=== PATIENT | female | born 1960 | race African-American/Black ===

== ENCOUNTER 2017-10-31 08:00 | Outpatient (CLI) | payer MEDICARE, OTHER | END 2017-10-31 08:01 | disposition home or self-care (01) | LOC: BICMAMMO 08:00 | PROVIDERS: ATTEND Internal Medicine Medical Oncology | DX: Z53.9 Procedure and treatment not carried out, unspecified reason (principal) ==

== ENCOUNTER 2017-11-03 12:45 | Outpatient (CLI) | payer MEDICARE, MEDICAID | END 2017-11-03 12:46 | disposition home or self-care (01) | LOC: BICMAMMO 12:45 | PROVIDERS: ATTEND Internal Medicine Medical Oncology | DX: Z12.31 Encounter for screening mammogram for malignant neoplasm of breast (principal); Z80.3 Family history of malignant neoplasm of breast | CPT/HCPCS: 77063 ==

== ENCOUNTER 2017-11-30 09:59 | Outpatient (CLI) | payer MEDICARE, MEDICAID | END 2017-11-30 10:00 | disposition home or self-care (01) | LOC: BICRAD 09:59 | PROVIDERS: ATTEND Family Medicine | DX: Z12.31 Encounter for screening mammogram for malignant neoplasm of breast (principal) | CPT/HCPCS: 71046 ==

== ENCOUNTER 2018-02-07 07:54 | Outpatient (CLI) | payer MEDICARE, MEDICAID ==
[2018-02-07 10:38] LABS: Actual Bicarbonate (HCO3a) 19.8 mEq/L (22-26); CO2 Tension 28.2 mmHg (35.0-45.0); O2 Tension (PaO2) 50.7 mmHg (80.0-100.0); pH, Arterial 7.47 (7.35-7.45)
[2018-02-07 10:39] LABS: Base Excess (BEa) 2.4 mEq/L (0 (+/-) 2.5); Hematocrit-ABG 47.6 % (36.0-47.0); Hemoglobin (Hb) 13.9 g/dL (12.0-16.0)
[2018-02-07 10:41] LABS: Analyzer IN Cardio OR; Puncture Site RT BR
== END 2018-02-07 07:55 | disposition home or self-care (01) ==
LOC: CP 07:54
PROVIDERS: ATTEND Family Medicine
DX: J44.9 Chronic obstructive pulmonary disease, unspecified (principal)
CPT/HCPCS: 82805; 94060; 94727; 94729

== ENCOUNTER 2018-02-14 10:24 | Inpatient (IN) | payer MEDICARE, MEDICAID ==
[2018-02-14 11:17] LABS: INR-International Normal Ratio 1.1; PTT 28.6 SEC (22.9-36.1); Prothrombin Time 14.1 SEC (12.0-14.7)
[2018-02-14 11:24] LABS: Hemoglobin 14.9 g/dL (12.0-16.0); Mean Corpuscular HGB CONC 31.4 g/dL (32.0-36.0); Mean Corpuscular Hemoglobin 22.2 pg (27.0-31.0); Mean Corpuscular Volume 70.6 fl (81.0-99.0); Mean Platelet Volume 6.6 fL (7.4-10.4); Platelet Count 232 thou/uL (130-400); RBC Distribution Width 16.5 % (11.5-14.5); Red Blood Cell (RBC) Count 6.71 mill/uL (4.20-5.40); White Blood Cell (WBC) Count 18.3 thou/uL (4.8-10.8)
[2018-02-14 11:34] LABS: ALT (SGPT) 37 U/L (8-55); AST (SGOT) 17 U/L (5-34); Albumin 4.3 g/dL (3.5-5.0); Alkaline Phosphatase 53 U/L (40-150); Anion Gap 15 mmol/L (10-20); BUN (Urea Nitrogen) 25 mg/dL (9.8-20.1); CK (CPK) 82 U/L (29-168); Calc. Creatinine Clearance 0 mL/min (70-130); Calcium 9.8 mg/dL (7.8-10.44); Carbon Dioxide 21 mmol/L (22-29); Chloride 106 mmol/L (98-107); Estimated GFR-MDRD 52; Globulin 2.5 g/dL (2.4-3.5); Glucose 103 mg/dL (70-105); Potassium 4.2 mmol/L (3.5-5.1); Protein, Total 6.8 g/dL (6.0-8.3); Sodium 138 mmol/L (136-145)
--- NOTE | 2018-02-14 11:34 | RAD ---
CHEST ONE VIEW: HISTORY: COPD exacerbated. COMPARISON: Chest one view from 06/02/2017. FINDINGS: The lungs are slightly hyperinflated. There are mildly increased interstitial markings in the lung b ases. There is a nodular density projecting over the left upper lobe. Heart size is at the upper limits of normal. No acute osseous abnormality. IMPRESSION: 1. Mild lung hyperinflation, suggesting obstructive pulmonary disease. 2. Mildly increased interstitial markings in the lung base can be seen with an atypical infectious p rocess or edema. 3. Nodular density projecting over the left upper lobe, which may represent a prominent vessel seen enface versus a nodule, Followup is recommended. POS: OFF
[2018-02-14 11:38] LABS: CKMB 4.3 ng/mL (0-6.6); Troponin I 0.028 ng/mL (< 0.028)
[2018-02-14] MEDS ORDERED: Magnesium Sulfate 2 GM/100 ML BAG ONE (11:44)
[2018-02-14] MEDS ORDERED: Water For Inject, Bacteriostat 30 ML ONE (11:44)
[2018-02-14] MEDS ORDERED: methylPREDNISolone Sod Succ/PF 125 MG/2 ML VIAL ONE (11:44)
[2018-02-14 11:46] LABS: #Lymphocytes 1.7 thou/uL (1.20-3.40); #Monocytes 0.8 thou/uL (0.11-0.59); #Neutrophils 15.8 thou/uL (1.40-6.50); %Eosinophils 0.1 % (0.0-10.0); %Lymphocytes 9.4 % (21.0-51.0); %Monocytes 4.2 % (0.0-10.0); %Neutrophils 86.3 % (42.0-75.0); Hypochromia SLIGHT = 6-15 cells (100X) (0-5/hpf); MDiff Complete? YES; Microcytosis SLIGHT = 6-15 cells (100X) (0-5/hpf); PLT Morphology Comment Appears Adequate; Poikilocytosis SLIGHT = 6-15 cells (100X) (0-5/hpf); Polychromasia SLIGHT = 2-3 cells (100X) (0-2/hpf)
[2018-02-14] MEDS ORDERED: Famotidine/PF 20 mg/2ml Vial ONE (11:56)
[2018-02-14] MEDS ORDERED: Acetaminophen 500 MG TAB ONE (12:29)
--- NOTE | 2018-02-14 14:13 | PDOC.FPRHP ---
- History of Present Illness Chief Complaint: N/V/chest tightness History of Present Illness: Time: 1:40pm Code Status: Full Patient is a 57yo AAF with PMHx of end stage COPD on chronic O2 supplementation , HTN, HLD and DURGA who presents with worsening nausea, dizziness and chest tightness. States that she was seen by her PCP last week and started on a new medication-Theophylline. States she took Theophylline ER 300mg 1 tab for 3 days and started having nausea, dizziness, muscles aches and insomnia. Called her PCP about the insomnia on Monday and instructed her take the medicine in the AM. Per instructions, she then took 2 tabs MWF and started having worsening of all symptoms so she came to the ED. Patient is followed by Dr. Mandujano of Pulmonology for DURGA but has not seen him for her COPD as PCP has been managing it. Denies any fevers, chills, worsening cough, sputum production or shortness of breath. No increase in inhaler use. PCP: Elijah Mendes [employer] Supervisor: Dr. Mandujano ED Course: 1. Solumedrol 125mg IV 2. Magnesium 2g IV 3. Duonev 4. Famotidine 20mg IV 5. 1L bolus NS 6. Tylenol 1g PO - Allergies/Adverse Reactions Allergies Allergy/AdvReac Type Severity Reaction Status Date / Time lisinopril Allergy COUGH Verified 02/14/18 19:58 - Home Medications Medication Instructions Recorded Confirmed Type Amlodipine Besylate [amLODIPine 5 mg PO DAILY 06/21/16 02/14/18 History Besylate] Atorvastatin Calcium [Lipitor] 80 mg PO DAILY 06/21/16 02/14/18 History Calcium Carbonate [Calcium] 600 mg PO DAILY 06/21/16 02/14/18 History Ezetimibe [Zetia] 10 mg PO DAILY 06/21/16 02/14/18 History HYDROcodone Bit/APAP 10/325 [[place]] 1 tab PO Q6HR PRN 06/21/16 02/14/18 History Isosorbide Mononitrate [Isosorbide 30 mg PO BID 06/21/16 02/14/18 History Mononitrate ER] Ferrous Sulfate [Feosol] 325 mg PO DAILY #0 tab 06/23/16 02/14/18 Rx Pantoprazole [Protonix] 40 mg PO 2100 #0 tab 06/23/16 02/14/18 Rx Nebivolol HCl [Bystolic] 10 mg PO DAILY #0 tab 06/24/16 02/14/18 Rx Aspirin 325 mg PO DAILY 02/14/18 02/14/18 History Magnesium 250 mg PO DAILY 02/14/18 02/14/18 History Omeprazole 40 mg PO DAILY 02/14/18 02/14/18 History Tiotropium [place] [Spiriva] 18 mcg INH DAILY 02/14/18 02/14/18 History rOPINIRole HCl [Ropinirole HCl] 0.5 mg PO DAILY 02/14/18 02/14/18 History - History PMHx: 1. COPD on 4L O2 via NC at baseline 2. HTN 3. HLD 4. DUGRA 5. Hx of CVA w/ LT sided residual weakness (2008) 6. GERD 7. OA PSHx: 1. Hysterectomy 2. Tonsillectomy 3. LT ovarian cyst removal FHx: sister and mother with lung ca; brother w/ esophageal ca Social: Tobacco: 1-2pks/yr for 30 yrs and quit 3yrs ago; no alcohol or drug use - Review of Systems General: denies: fever/chills Eyes: denies: eye pain, vision changes ENT: denies: nasal congestion Respiratory: reports: cough, shortness of breath Cardiovascular: reports: chest pain. denies: palpitation, edema Gastrointestinal: reports: nausea, constipation. denies: vomiting, diarrhea Genitourinary: denies: dysuria, polyuria Skin: denies: rashes, itching Musculoskeletal: denies: pain, swelling Neurological: denies: numbness, syncope Psychological: denies: anxiety, depression - Vital signs BP: 122/62 HR: 54 RR: 16 Tmax: 97.7 Pox: 96% on 4L Wt: 95kg - Physical Exam Constitutional: NAD HEENT: normocephalic and atraumatic, PERRLA Neck: supple Heart: RRR, normal S1/S2, pulses present Lungs: CTAB (dec air movement), no respiratory distress Abdomen: soft, non-tender, bowel sounds present Neurological: no focal deficit Skin: no rash/lesions, good turgor Heme/Lymphatic: no unusual bruising or bleeding Psychiatric: normal mood and affect FMR H&P: Results - Labs Result Diagrams: 02/15/18 11:04 02/15/18 10:55 Lab results: WBC 18.3 thou/uL (4.8-10.8) H 02/14/18 10:59 Hgb 14.9 g/dL (12.0-16.0) 02/14/18 10:59 Hct 47.4 % (36.0-47.0) H 02/14/18 10:59 MCV 70.6 fl (81.0-99.0) L 02/14/18 10:59 Plt Count 232 thou/uL (130-400) 02/14/18 10:59 Neutrophils % 86.3 % (42.0-75.0) H 02/14/18 10:59 Sodium 138 mmol/L (136-145) 02/14/18 10:59 Potassium 4.2 mmol/L (3.5-5.1) 02/14/18 10:59 Chloride 106 mmol/L (98-107) 02/14/18 10:59 Carbon Dioxide 21 mmol/L (22-29) L 02/14/18 10:59 BUN 25 mg/dL (9.8-20.1) H 02/14/18 10:59 Creatinine 1.29 mg/dL (0.6-1.1) H 02/14/18 10:59 Glucose 103 mg/dL (70-105) 02/14/18 10:59 Calcium 9.8 mg/dL (7.8-10.44) 02/14/18 10:59 Total Bilirubin 1.0 mg/dL (0.2-1.2) 02/14/18 10:59 AST 17 U/L (5-34) 02/14/18 10:59 ALT 37 U/L (8-55) 02/14/18 10:59 Alkaline Phosphatase 53 U/L (40-150) 02/14/18 10:59 Creatine Kinase 82 U/L (29-168) 02/14/18 10:59 CK-MB (CK-2) 4.3 ng/mL (0-6.6) 02/14/18 10:59 Serum Total Protein 6.8 g/dL (6.0-8.3) 02/14/18 10:59 Albumin 4.3 g/dL (3.5-5.0) 03/21/18 10:59 Laboratory Tests 02/14/18 02/14/18 02/14/18 10:59 10:59 10:59 PT 14.1 INR 1.1 APTT 28.6 CK-MB (CK-2) 4.3 Troponin I 0.028 Theophylline 36.4 H* - EKG Interpretation EKG: NSR, RV hypertrophy - Radiology Interpretation Chest x-ray Status: image reviewed by me, report reviewed by me (mild lung hyperinflation, nodular density over LISETTE representing a prominent vessel vs. nodule) FMR H&P: A/P - Problem List (1) Theophylline toxicity Current Visit: Yes Status: Acute Code(s): R89.2 - ABN LEV DRUG/MEDS/BIOL SUBST IN SPECIMENS FROM OTH ORG/TISS; T48.6X1A - POISONING BY ANTIASTHMATICS, ACCIDENTAL, INIT (2) COPD (chronic obstructive pulmonary disease) Current Visit: No Status: Chronic (3) HTN (hypertension) Current Visit: No Status: Chronic Code(s): I10 - ESSENTIAL (PRIMARY) HYPERTENSION (4) Hyperlipidemia Current Visit: No Status: Acute Code(s): E78.5 - HYPERLIPIDEMIA, UNSPECIFIED (5) Obstructive sleep apnea on CPAP Current Visit: Yes Status: Acute Code(s): G47.33 - OBSTRUCTIVE SLEEP APNEA ( ADULT) (PEDIATRIC); Z99.89 - DEPENDENCE ON OTHER ENABLING MACHINES AND DEVICES (6) Leukocytosis Current Visit: Yes Status: Acute Code(s): D72.829 - ELEVATED WHITE BLOOD CELL COUNT, UNSPECIFIED (7) Gastroesophageal reflux disease Current Visit: No Status: Chronic Code(s): K21.9 - GASTRO-ESOPHAGEAL REFLUX DISEASE WITHOUT ESOPHAGITIS (8) History of CVA (cerebrovascular accident) Current Visit: No Status: Chronic Code(s): Z86.73 - PRSNL HX OF TIA (TIA), AND CEREB INFRC W/O RESID DEFICITS - Plan 1. Theophylline Toxicity: Patient recently started on Theophylline by PCP last week. Since starting medication patient has had acute onset of nausea, dizziness , chest tightness of muscle aches. Theophylline level of 36.4. Will discontinue theophylline. Treat symptomatically. Cont IVF. Monitor on tele. Initial cardiac enzymes are negative. Dr. Mandujano of Pulmonology consulted for further recommendations. Appreciate recs. 2. Chest tightness: likely 2/2 #1. Initial cardiac enzymes negative. EKG without any ischemic changes. Cont to trend CEz. 3. GILA: Cr slightly increased at 1.29. Cont IVF. 4. COPD: Patient given steroids, Mg and duoneb treatment for COPD exacerbation, however patient denies any worsening shortness of breath, cough or sputum production. Do not suspect exacerbation. Currently at her baseline of 4L O2 via NC. Cont home medications and monitor. 5. Leukocytosis: Do not suspect infectious process. Likely from chronic prednisone use. Monitor. 6. HTN: BP stable. Cont home meds and monitor. 7. HLD: cont home meds. 8. GERD: cont homeds. 9. DURGA: to bring BiPAP from home. 10. Diet: HH 11. PPx: SCDs 12. Code Status: Full Attending Addendum - Attending Addendum Date/Time: 02/14/18 [id number] I personally evaluated the patient and discussed the management with Dr. Man I agree with the History, Examination, Assessment and Plan documented above with any addition or exceptions noted below. 57 yo female with multiple medical problems admitted for theophylline toxicity. Will hold medication. Trend blood level. Will have pulm evaluated due to ES COPD. Will rule out ACS due to chest pain. Continue home meds. Adjust as indicated. Araseli
[2018-02-14 14:35] LABS: Troponin I 0.022 ng/mL (< 0.028)
[2018-02-14] MEDS ORDERED: Ondansetron HCl/PF 4 MG/2 ML Vial IVP PRN ×2 (15:27)
[2018-02-14] MEDS ORDERED: Acetaminophen 325 MG TAB PO PRN (16:07)
[2018-02-14] MEDS ORDERED: Ondansetron ODT 4 MG TAB PO PRN (16:07)
[2018-02-14] MEDS ORDERED: Mag-Al 1200 mg/1200 mg/30 ML UDCUP PO PRN (17:18)
[2018-02-14 18:05] LABS: Troponin I 0.023 ng/mL (< 0.028)
[2018-02-14] MEDS: Sodium Chloride 0.9% 1,000 ML IV SCH (18:10)
[2018-02-14] MEDS: Mometasone/Formoterol 120 PUFF INHALER INH SCH (19:01)
[2018-02-14 19:27] VITALS: BMI 32.4
[2018-02-15] MEDS: Sodium Chloride 0.9% 1,000 ML IV SCH ×4 (01:38→17:07)
[2018-02-15] MEDS: Mometasone/Formoterol 120 PUFF INHALER INH SCH ×2 (06:47→18:28)
--- NOTE | 2018-02-15 06:50 | PDOC.FM ---
- Subjective Subjective: Patient is doing well this morning. She reports she did have a desaturation while walking to the bathroom down to 75% with O2 NC in place. This is not abnormal for her. She reports that her abdominal pain and nausea have resolved and she is feeling back to her baseline. - Objective MAR Reviewed: Yes Vital Signs & Weight: Vital Signs (12 hours) Temp Pulse Resp BP Pulse Ox 02/15/18 06:47 82 20 90 L 02/15/18 04:00 98.6 F 93 18 114/56 L 91 L 02/15/18 00:15 98 F 98 16 134/81 92 L 02/14/18 19:45 98.1 F 104 H 18 116/79 92 L Weight Weight 98.43 kg I&O: 02/13/18 02/14/18 02/15/18 06:59 06:59 06:59 Intake Total 1045 Output Total 1050 Balance -5 Result Diagrams: 02/15/18 11:04 02/15/18 10:55 Phys Exam - Physical Examination Constitutional: NAD HEENT: moist MMs expiratory wheezing, distant lung sounds, poor air movement (at baseline per patient hx) Cardiovascular: RRR, no significant murmur distant hear sounds Gastrointestinal: soft, non-tender Musculoskeletal: no edema, pulses present Neurological: moves all 4 limbs Psychiatric: normal affect, A&O x 3 Skin: no rash Dx/Plan (1) Theophylline toxicity Code(s): R89.2 - ABN LEV DRUG/MEDS/BIOL SUBST IN SPECIMENS FROM OTH ORG/TISS; T48.6X1A - POISONING BY ANTIASTHMATICS, ACCIDENTAL, INIT Status: Acute (2) COPD (chronic obstructive pulmonary disease) Status: Chronic (3) Leukocytosis Code(s): D72.829 - ELEVATED WHITE BLOOD CELL COUNT, UNSPECIFIED Status: Acute (4) Obstructive sleep apnea on CPAP Code(s): G47.33 - OBSTRUCTIVE SLEEP APNEA (ADULT) (PEDIATRIC); Z99.89 - DEPENDENCE ON OTHER ENABLING MACHINES AND DEVICES Status: Acute (5) Hyperlipidemia Code(s): E78.5 - HYPERLIPIDEMIA, UNSPECIFIED Status: Acute (6) Gastroesophageal reflux disease Code(s): K21.9 - GASTRO-ESOPHAGEAL REFLUX DISEASE WITHOUT ESOPHAGITIS Status: Chronic (7) HTN (hypertension) Code(s): I10 - ESSENTIAL (PRIMARY) HYPERTENSION Status: Chronic - Plan Plan: Theophylline Toxicity - Patient symptomatically improved, reports she is at her baseline. - Theophylline level of 36.4, 20.8 today - Plan to observe patient overnight and recheck level tomorrow. - Continue to hold Theophylline - Dr. Mandujano consulted, appreciate recs COPD - Patient given steroids, Mg and duoneb treatment for COPD exacerbation, however patient denies any worsening shortness of breath, cough or sputum production. - Currently at her baseline of 4L O2 via NC. - Continue prednisone and home medications. HTN - BP stable. Cont home meds and monitor. HLD - cont home meds. GERD - cont home meds. DURGA - to bring BiPAP from home. GILA - resolved with fluid hydration. - D/c IVF Leukocytosis - Resolved with fluids.
--- NOTE | 2018-02-15 08:41 | PRG ---
DATE OF SERVICE: 02/15/2018 This morning she is better. She is still nervous. She did not sleep last night, she said still from theophylline hangover. PHYSICAL EXAMINATION: VITAL SIGNS: Sats 93, temperature 98, blood pressure 140/56, respirations 18. CHEST: Chest revealed decreased breath sounds, no wheezing. CARDIAC: Normal S1-S2. No gallops. ABDOMEN: Soft, no masses. LABORATORY: White count 18,000, H&H 14 and 47, platelet count is normal. Creatinine 1.29, calcium l evel pending. IMPRESSION: 1. End-stage chronic obstructive pulmonary disease. 2. Theophylline toxicity. 3. Sleep apnea. PLAN: Await theophylline level today. Continue PT and supportive care. Hopefully, she can be discharged home tomorrow if levels are subtherapeutic. I will follow.
[2018-02-15] MEDS ORDERED: Non-Formulary Item 1 EACH (Omeprazole [Omeprazole] 40 MG) PO SCH (09:00)
[2018-02-15] MEDS ORDERED: FLU VACC QS2017-18 36 mo. & older 0.5 ML SYRINGE IM ONE (09:00)
[2018-02-15] MEDS: Ferrous Sulfate 325 MG TAB PO SCH (09:18)
[2018-02-15] MEDS: Amlodipine 5 MG TAB PO SCH (09:18)
[2018-02-15] MEDS: Magnesium Oxide 250 MG TAB PO SCH (09:18)
[2018-02-15] MEDS: Calcium Carbonate 600 MG TAB PO SCH (09:19)
[2018-02-15] MEDS: Nebivolol HCl 5 MG TAB PO SCH (09:19)
[2018-02-15] MEDS: Aspirin 325 MG TAB PO SCH (09:19)
[2018-02-15] MEDS: Atorvastatin Calcium 40 MG TAB PO SCH (09:19)
[2018-02-15] MEDS: rOPINIRole HCl 0.5 MG TAB PO SCH (09:19)
[2018-02-15] MEDS: Ezetimibe 10 MG TAB PO SCH (09:20)
[2018-02-15 11:24] LABS: Anion Gap 14 mmol/L (10-20); BUN (Urea Nitrogen) 25 mg/dL (9.8-20.1); Calc. Creatinine Clearance 94 mL/min (70-130); Calcium 9.8 mg/dL (7.8-10.44); Carbon Dioxide 20 mmol/L (22-29); Chloride 109 mmol/L (98-107); Estimated GFR-MDRD 67; Glucose 126 mg/dL (70-105); Potassium 4.2 mmol/L (3.5-5.1); Sodium 139 mmol/L (136-145)
--- NOTE | 2018-02-15 11:29 | CON ---
DATE OF CONSULTATION: 02/14/2018 HISTORY OF PRESENT ILLNESS: A 57-year-old female who was admitted to the hospital with theophylline toxicity. Her theophylline level was elevated at 36.4. Normally, level less than 20. She has been taking theophylline 300 mg once a day and subsequently tw ice a day with persistent nausea and vomiting for the last several days. Denies fever or chills. Erica wilson says when she was taking the theophylline, it did not appear to have made much difference to her br eathing. She recently had a pulmonary function test ordered by me on 02/07/2018, which shows that her baseline PFT shows moderate COPD with severely reduced diffusing capacity. Gas transfer at 33%. This is for most of her severe COPD, in fact, her blood gases showed a pO2 of 50, pCO2 of 28, pH of 7 .47, on room air, also suggesting severe hypoxemia with respiratory alkalosis. On most days, she ca n barely walk even about 20-30 feet without getting markedly short of breath. She denies any chest p ain, chills, or sweats. PAST MEDICAL HISTORY: Pertinent for severe COPD, sleep apnea, coronary artery disease, previous CVA with residual weakness, hyperlipidemia, reflux, depression and hypertension. PAST SURGICAL HISTORY: Multiple, hysterectomy, tonsillectomy, catheterization. CHRONIC MEDICATION FROM HOME: Protonix, Bystolic, Ismo, hydrocodone, Zetia, Symbicort, Lipitor, amlo dipine, albuterol and recent theophylline. ALLERGIES: LISINOPRIL. SOCIAL AND FAMILY HISTORY: Unremarkable. No recent tobacco abuse. Former smoker. REVIEW OF SYSTEMS: Ten-point negative. PHYSICAL EXAMINATION: I reviewed old records and all chest x-rays personally. VITAL SIGNS: Blood pressure 129/66, sats 93% on 2 liters, respirations 24, pulse 71 and temperature is 97. GENERAL: She appears to be in no acute distress. CHEST: Decreased breath sounds. No wheezing. CARDIAC: Normal S1 and S2. No gallops. ABDOMEN: Soft. No masses. LABORATORY DATA: White count 18,000, hemoglobin and hematocrit 14 and 47, platelet count 232. Elect rolytes are normal. Creatinine 1.2. IMAGING DATA: Chest x-ray shows nonspecific bibasilar infiltrates, chronic in nature. IMPRESSION: 1. Acute on chronic respiratory failure. 2. Theophylline toxicity. 3. Cerebrovascular accident. 4. Azotemia. 5. Hypertension. 6. Coronary artery disease. 7. Sleep apnea. PLAN: Avoid theophylline. It is not a great drug for people with COPD. I am not so sure that it dixon s much benefit to her. Unfortunately, she has severe dyspnea and severe hypoxemia secondary to marke d reduction in diffusing capacity. This is very unlikely, going to change her many medications that we have at the present time. I have reinitiated neb treatments, scheduled steroids and Dulera. Unfortunately, she is on maximum medications, there is not much else we can add. We will discuss and follow up. Consultation note, 70 minutes, 50% direct patient care.
[2018-02-15 11:49] LABS: Anisocytosis SLIGHT = 6-15 cells (100X) (0-5/hpf); Band 1 % (5-11); Hemoglobin 14.8 g/dL (12.0-16.0); Lymphocytes 7 % (21-51); MDiff Complete? YES; Mean Corpuscular HGB CONC 31.7 g/dL (32.0-36.0); Mean Corpuscular Hemoglobin 22.1 pg (27.0-31.0); Mean Corpuscular Volume 69.9 fl (81.0-99.0); Mean Platelet Volume 6.9 fL (7.4-10.4); Monocytes 3 % (0-10); Neutrophil 83 % (42-75); Ovalocytes MODERATE= 6-15 cells (100X) (0-1/hpf); Platelet Count 226 thou/uL (130-400); Poikilocytosis MODERATE=16-30 cells (100X) (0-5/hpf); RBC Distribution Width 16.7 % (11.5-14.5); Reactive Lymphocytes 6 % (0-10); Red Blood Cell (RBC) Count 6.68 mill/uL (4.20-5.40); Schistocytes SLIGHT = 2-5 cells (100X) (0-1/hpf); White Blood Cell (WBC) Count 20.1 thou/uL (4.8-10.8)
--- NOTE | 2018-02-15 13:57 | ADD-PRG ---
DATE OF SERVICE: 02/15/2018 This is an addendum to the note of Dr. Livia Leblanc. Mrs. Sheila Zamudio is a pleasant 57-year-old black female patient with severe COPD. She had recently be en started on theophylline for her COPD and after increasing her doses to 300 mg b.i.d. She shortly within days became quite nauseated. She presented to our hospital and was noted to have an elevated theophylline level. We have held her theophylline and she already feels much better. She has also b een seen by her usual judicial law clerk Dr. Mandujano. She is also on several inhalers as well as prednisone.
[2018-02-15] MEDS ORDERED: traMADol HCl 50 MG TAB PO SCH (16:45)
[2018-02-16 06:03] LABS: Anion Gap 13 mmol/L (10-20); BUN (Urea Nitrogen) 28 mg/dL (9.8-20.1); Calc. Creatinine Clearance 75 mL/min (70-130); Calcium 9.3 mg/dL (7.8-10.44); Carbon Dioxide 19 mmol/L (22-29); Chloride 115 mmol/L (98-107); Estimated GFR-MDRD 52; Glucose 93 mg/dL (70-105); Potassium 4.5 mmol/L (3.5-5.1); Sodium 142 mmol/L (136-145)
[2018-02-16 06:11] LABS: Hemoglobin 14.1 g/dL (12.0-16.0); Mean Corpuscular Hemoglobin 21.6 pg (27.0-31.0); Mean Corpuscular Volume 69.6 fl (81.0-99.0); Mean Platelet Volume 7.2 fL (7.4-10.4); Platelet Count 214 thou/uL (130-400); RBC Distribution Width 17.1 % (11.5-14.5); Red Blood Cell (RBC) Count 6.55 mill/uL (4.20-5.40); White Blood Cell (WBC) Count 23.5 thou/uL (4.8-10.8)
[2018-02-16 06:12] LABS: Lymphocytes 21 % (21-51); MDiff Complete? YES; Monocytes 6 % (0-10); Neutrophil 72 % (42-75); PLT Morphology Comment Appears Adequate; Reactive Lymphocytes 1 % (0-10)
--- NOTE | 2018-02-16 06:27 | PDOC.FM ---
- Subjective Subjective: Patient is overall feeling much better. She does endorse diarrhea, onset [employer] with her abdominal pain. Abdominal pain has subsided but diarrhea has continued. Breathing is much easier. She reports she is at her baseline. Denies cough, increasing SOB, and fever/chills. - Objective MAR Reviewed: Yes Vital Signs & Weight: Vital Signs (12 hours) Temp Pulse Resp BP Pulse Ox 02/16/18 04:02 98.3 F 78 20 121/82 94 L 02/15/18 20:20 98.7 F 95 22 H 152/86 H 90 L Weight Weight 100.698 kg I&O: 02/14/18 02/15/18 02/16/18 06:59 06:59 06:59 Intake Total 1045 1440 Output Total 1050 1000 Balance -5 440 Result Diagrams: 02/16/18 05:24 02/16/18 05:24 Phys Exam - Physical Examination Constitutional: NAD HEENT: moist MMs Neck: no nodes Respiratory: no wheezing, no rales, clear to auscultation bilateral distant lung sounds Cardiovascular: RRR, no significant murmur Gastrointestinal: soft mildly tender in epigastric area, much improved from yesterday Musculoskeletal: no edema Neurological: moves all 4 limbs Psychiatric: normal affect, A&O x 3 Skin: normal turgor, cap refill <2 seconds Dx/Plan (1) Theophylline toxicity Code(s): R89.2 - ABN LEV DRUG/MEDS/BIOL SUBST IN SPECIMENS FROM OTH ORG/TISS; T48.6X1A - POISONING BY ANTIASTHMATICS, ACCIDENTAL, INIT Status: Acute (2) COPD (chronic obstructive pulmonary disease) Status: Chronic (3) Leukocytosis Code(s): D72.829 - ELEVATED WHITE BLOOD CELL COUNT, UNSPECIFIED Status: Acute (4) Obstructive sleep apnea on CPAP Code(s): G47.33 - OBSTRUCTIVE SLEEP APNEA (ADULT) (PEDIATRIC); Z99.89 - DEPENDENCE ON OTHER ENABLING MACHINES AND DEVICES Status: Acute (5) Hyperlipidemia Code(s): E78.5 - HYPERLIPIDEMIA, UNSPECIFIED Status: Acute (6) Gastroesophageal reflux disease Code(s): K21.9 - GASTRO-ESOPHAGEAL REFLUX DISEASE WITHOUT ESOPHAGITIS Status: Chronic (7) HTN (hypertension) Code(s): I10 - ESSENTIAL (PRIMARY) HYPERTENSION Status: Chronic - Plan Plan: Theophylline Toxicity - Patient symptomatically improved, reports she is at her baseline. - Theophylline level of 36.4, 20.8 today - Plan to observe patient overnight and recheck level tomorrow. - Continue to hold Theophylline - Dr. Mandujano consulted, appreciate recs Leukocytosis - initially WBC is 18, rising to 23 this morning - patient is afebrile - CXR to look for developing PNA that may have been missed. COPD - Patient given steroids, Mg and duoneb treatment for COPD exacerbation, however patient denies any worsening shortness of breath, cough or sputum production. - Currently at her baseline of 4L O2 via NC. - Continue prednisone and home medications. HTN - BP stable. Cont home meds and monitor. HLD - cont home meds. GERD - cont home meds. DURGA - BiPAP at night. GILA - encourage PO hydration
[2018-02-16] MEDS: Mometasone/Formoterol 120 PUFF INHALER INH SCH (07:24)
[2018-02-16] MEDS ORDERED: predniSONE 20 MG TAB PO SCH (08:00)
--- NOTE | 2018-02-16 08:53 | RAD ---
CHEST PA AND LATERAL: History: 57-year-old female with history leukocytosis, prior possible pneumonia. Comparison: 02-14-18 FINDINGS: Monitor leads overlie the chest. Heart size is within normal limits. Increased linear and interstitia l markings are noted bilaterally but stable. No confluent pneumonia, overt edema, or pleural effusion . IMPRESSION: Borderline heart size with stable increased markings bilaterally. No evidence of pneumonia or other a cute process. POS: OFF
[2018-02-16] MEDS: Atorvastatin Calcium 40 MG TAB PO SCH (08:57)
[2018-02-16] MEDS: Aspirin 325 MG TAB PO SCH (08:57)
[2018-02-16] MEDS: Magnesium Oxide 250 MG TAB PO SCH (08:57)
[2018-02-16] MEDS: Amlodipine 5 MG TAB PO SCH (08:57)
[2018-02-16] MEDS: rOPINIRole HCl 0.5 MG TAB PO SCH (08:57)
[2018-02-16] MEDS: Calcium Carbonate 600 MG TAB PO SCH (08:57)
[2018-02-16] MEDS: Ezetimibe 10 MG TAB PO SCH (08:57)
[2018-02-16] MEDS: Ferrous Sulfate 325 MG TAB PO SCH (08:57)
[2018-02-16] MEDS: Nebivolol HCl 5 MG TAB PO SCH (08:57)
--- NOTE | 2018-02-16 10:47 | PRG-2 ---
DATE OF SERVICE: 02/15/2018 CONTINUITY PROVIDER NOTE: This note is written as the patient's primary care physician to aid inpatient team and clarify patient's outpatient history and regimen. PRIMARY CARE PROVIDER: Anuel Mendes MD SUMMARY OF THE PATIENT'S OUTPATIENT CARE: The patient is a 57-year-old - Armenian female with past medical history of COPD, obstructive sleep apnea, beta thalassemia minor, chronic hypoxia, coronary artery disease, hypertension in a previous smoker. She has had worsening of her COPD lately, it has become very severe. She is basically isolated into her home except for when she leaves for doctor's visits and to go to [employer] weekly. Even at home, she is isolated mostly to her room because she becomes short of breath and hypoxic to the 70s even with simple tasks like walking to the kitchen and getting something. She chronically is on 3-4 liters of oxygen at home with movement, so sometimes need to increase the oxygen up to 5 liters per minute per nasal cannula. Recently, with this worsening, I prescribed short dose of 40 prednisone for 5 days, followed by 10 mg of prednisone every other day because of the severity of her disease. She lost approximately 20 pounds over the last 6 months, I think because of increased work of breathing. She regularly is in the 80s and can easily drop into the 70s even with oxygen supplementation. She is on maximum doses of Spiriva and Symbicort and so that is why we added the chronic steroids and added the theophylline. The patient was very pleased that the theophylline was helping. She felt like she could move more easily around the house. She can tolerate taking a shower, but she also had some insomnia, removed the medication in the morning to see if that might help with her insomnia. We scheduled the regimen up to date which included switching from 300 daily to 300 two tablets daily, so her dose is 600. She developed some nausea in addition to her insomnia and came to the emergency department with apparent theophylline toxicity. Now, the patient had theophylline held and she is beginning to feel better. She is very interested in continuing at some dose because it was helping her and giving her some increased quality of life. Based on patient's recent ABG that was done at the hospital on the , it showed some significant hypoxia. Surprisingly, it did not show as much CO2 retention as I expected. She actually was not retainin at all, she had decreased CO2 to 28.2. I recently reviewed an echocardiogram, which showed some increased pressure in the right side. This has made me start to wonder if in addition to her COPD or may be predominantly whether she has pulmonary hypertension as a diagnosis. I plan to bring this up to Dr. Mandujano and get his thought and see if there are any other treatments other than the mainstay of oxygen to help with her disease. I am not certain she has pulmonary hypertension but I am considering it and would like specialist's opinion on this. We will likely discharge the patient on theophylline 200 mg daily and not increase from that point on. We will check a theophylline level, though several days after discharge to make sure it is not going to be supertherapeutic again even at the smaller dose, but I think it will be well tolerated. MTDD
--- NOTE | 2018-02-16 12:13 | ADD-PRG ---
ADDENDUM: DATE OF SERVICE: 02/16/2018 This morning, Ms. Zamudio looks and feels much better. She is having no nausea. Her theophylline leve l is now down to 20. We will discharge her today and reduce her theophylline dosage to one 300 mg ta blet daily. She stated that this did help her breathing somewhat and did not cause side effects and so she had increased the dosage. She will follow up with Dr. Mendes in our clinic in a week or two.
[2018-02-16 12:53] VITALS: BP 112/80; TEMP 98.1
--- NOTE | 2018-02-16 15:12 | PRG ---
DATE OF SERVICE: 02/16/2018 This morning she is awake and responsive. She is better, less nauseated. PHYSICAL EXAMINATION: VITAL SIGNS: Sats 98 on 3 liters, pulse 60, blood pressure 180/80. CHEST: Chest reveals decreased breath sounds, no wheezing. CARDIAC: Normal S1, S2. ABDOMEN: Soft, no masses. Her theophylline level was 20.8 yesterday. She would probably be today. Creatinine 1.29. Elec trolytes are normal. White count 22,000. IMPRESSION: 1. Chronic obstructive pulmonary disease exacerbation. 2. Bronchitis. 3. Theophylline toxicity. PLAN: She is stable enough to be discharged home. She has an appointment, follow up in our office. As noted continue present medications, Dulera and neb treatment, Spiriva at home. Avoid theophylline.
--- NOTE | 2018-02-17 17:08 | EKG ---
Test Reason : Blood Pressure : / mmHG Vent. Rate : 090 BPM Atrial Rate : 090 BPM P-R Int : 144 ms QRS Dur : 080 ms QT Int : 392 ms P-R-T Axes : 063 138 044 degrees QTc Int : 479 ms Normal sinus rhythm Right axis deviation Left atrial enlargement Right ventricular hypertrophy Nonspecific ST abnormality Abnormal ECG When compared with ECG of 02-JUN-2017 09:52, QRS axis Shifted right ST now depressed in Inferior leads ST now depressed in Lateral leads Confirmed by DWAYNE MCGILL, DR. Lou ([id number]) on 02/17/2018 5:08:25 PM Referred By: ANKITA Confirmed By:DR. Carmine RICE MD
--- NOTE | 2018-02-22 13:59 | DIS-2 ---
DATE OF ADMISSION: 02/14/2018 DATE OF DISCHARGE: 02/16/2018 RESIDENT: Livia Leblanc DO. ADMITTING ATTENDING: Dr. Elvia Mcmullen. DISCHARGE ATTENDING: Dr. Chandan Wiley. CONSULTATIONS: Pulmonology, Dr. Mandujano. PROCEDURES/OPERATIONS: 1. Chest x-ray on 02/14/2018, which showed mild lung hyperinflation, mild increased interstitial markings in the lung bases suggestive of atypical infectious process or edema and a nodular density projecting over the left upper lobe, which may represent a prominent vessel versus a nodule. 2. Chest x-ray on 02/16/2018 shows borderline heart size with stable increased markings bilaterally. No evidence of pneumonia. PRIMARY DIAGNOSES: 1. Theophylline toxicity. 2. Chronic obstructive pulmonary disease. SECONDARY DIAGNOSES: 1. Hypertension. 2. Hyperlipidemia. 3. Gastroesophageal reflux disease. 4. Obstructive sleep apnea. 5. Acute kidney injury. DISCHARGE MEDICATIONS: 1. Omeprazole 40 mg p.o. daily. 2. Magnesium 250 mg p.o. daily. 3. Aspirin 325 mg p.o. daily. 4. Spiriva 18 mcg inhalation daily. 5. Ropinirole 0.5 mg p.o. daily. 6. Lipitor 80 mg p.o. daily. 7. Ferrous sulfate 325 mg p.o. daily. 8. Labetalol 10 mg p.o. daily. 9. Zetia 10 mg p.o. daily. 10. [place] 10/325 mg 1 tab p.o. q.6 hours p.r.n. 11. Amlodipine 5 mg p.o. daily. 12. Prednisone 10 mg p.o. daily. 13. Theophylline extended release 300 mg p.o. daily. 14. Dulera 2 puffs inhalation b.i.d. DISCONTINUED MEDICATIONS: Theophylline ER 300 mg b.i.d. HISTORY OF PRESENT ILLNESS AND HOSPITAL COURSE: The patient is a 57-year-old female with a past medical history of end-stage COPD on chronic O2 supplementation, hypertension, hyperlipidemia, and DURGA, who presented with worsening nausea, dizziness, and chest tightness. She was started on a medication last week, theophylline. Theophylline helped, although did cause her to have nausea, dizziness, and muscle aches as well as insomnia. She transitioned to taking the medication in the morning instead of night without complete resolution. She did state that the medication did seem to help with her breathing while she walked. She was instructed to take 2 tabs and her dose was increased to 2 tablets of the 300 mg and symptoms started worsening, so she came to the ED. On admission, she was found to have a potassium level of 36.4. Theophylline was discontinued and patient was treated symptomatically with IV fluids and monitoring on telemetry. Cardiac enzymes were drawn due to the chest tightness and found to be negative. Dr. Mandujano was consulted for further recommendations. Dr. Mandujano saw patient and recommended discontinuation of theophylline or restarting at a maximum of 300mg daily as there is a narrow therapeutic window for theophylline. The patient does report that the medication did give her some symptom relief and opted to continue taking the medication 300 mg once daily. Chest x-ray was performed, which showed some interstitial lung markings and with a possible infectious etiology or edema. The following day, the patient was feeling much better. Despite improvement in symptoms, a repeat chest x-ray was performed just to reevaluate. It was found to be negative. OTHER PERTINENT LAB FINDINGS: The patient came in with elevated white blood cell count of 18.3, elevated at 23.5, this is likely not an infectious elevation , but due to chronic steroid use and IV steroids given in the ED. Other pertinent lab findings, the patient did have a mild GILA with creatinine elevated to 1.3, which down trended to 1.0 and up trending again to 1.3. It is likely associated with hydration status. Recommend repeating labs outpatient and was p.o. hydration. Theophylline level downtrended to 20.8. The following day, the patient was in great improvement reporting herself to be at baseline. At baseline, she reports desaturations while she walks, but able to have O2 saturations in the 90s on resting with 3 liters of oxygen. In regard to the patient's other chronic medical conditions, home medications will be continued and CPAP was brought from home. The patient was afebrile with normal vital signs during her entire stay. DISPOSITION: Stable. DISCHARGE INSTRUCTIONS: 1. Location: Home. 2. Diet: Heart healthy diet. 3. Activity: As tolerated. Recommended wearing oxygen at all times. 4. Follow up with PCP, Dr. Vini Mendes 1 week for theophylline level and repeat BMP as well as follow up with Dr. Mandujano in 2 weeks. [facility]
== END 2018-02-16 13:55 | disposition home or self-care (01) | DRG 682 ==
LOC: ERS 10:24 → 2NO 13:40
PROVIDERS: ADMIT Family Medicine; ATTEND Family Medicine
PROC: 5A09357 Assistance with Respiratory Ventilation, Less than 24 Consecutive Hours, Continuous Positive Airway Pressure (ICD-10-PCS; principal; 2018-02-15)
PROC: 5A09357 Assistance with Respiratory Ventilation, Less than 24 Consecutive Hours, Continuous Positive Airway Pressure (ICD-10-PCS; 2018-02-16)
DX: N17.9 Acute kidney failure, unspecified (principal); J96.21 Acute and chronic respiratory failure with hypoxia; E87.3 Alkalosis; J44.1 Chronic obstructive pulmonary disease with (acute) exacerbation; I69.354 Hemiplegia and hemiparesis following cerebral infarction affecting left non-dominant side; T48.6X5A Adverse effect of antiasthmatics, initial encounter; R11.2 Nausea with vomiting, unspecified; R07.89 Other chest pain; Z99.81 Dependence on supplemental oxygen; D56.3 Thalassemia minor; R42 Dizziness and giddiness; M79.1 Myalgia; G47.00 Insomnia, unspecified; R19.7 Diarrhea, unspecified; G47.33 Obstructive sleep apnea (adult) (pediatric); I25.10 Atherosclerotic heart disease of native coronary artery without angina pectoris; D72.829 Elevated white blood cell count, unspecified; T38.0X5A Adverse effect of glucocorticoids and synthetic analogues, initial encounter; Z87.891 Personal history of nicotine dependence; I10 Essential (primary) hypertension; R63.4 Abnormal weight loss; F32.9 Major depressive disorder, single episode, unspecified; E78.5 Hyperlipidemia, unspecified; K21.9 Gastro-esophageal reflux disease without esophagitis
CPT/HCPCS: 36415; 71045; 71046; 80048; 80053; 80198; 82553; 84484; 85025; 85610; 85730; 93005; 93010; 94640; 96361; 96365; 96366; 96375; J2920; J2930; J3475; J7506; J7620; S0028

== ENCOUNTER 2018-02-21 09:23 | Inpatient (IN) | payer MEDICARE, OTHER ==
[2018-02-21 10:06] LABS: Mean Corpuscular HGB CONC 32.1 g/dL (32.0-36.0); Mean Corpuscular Hemoglobin 21.8 pg (27.0-31.0); Mean Platelet Volume 6.2 fL (7.4-10.4); Platelet Count 183 thou/uL (130-400); Red Blood Cell (RBC) Count 6.41 mill/uL (4.20-5.40); White Blood Cell (WBC) Count 14.4 thou/uL (4.8-10.8)
--- NOTE | 2018-02-21 10:20 | RAD ---
PORTABLE CHEST 1 VIEW: DATE: 02/21/18. TIME: 10:11 a.m. HISTORY: Chest pain, recent COPD exacerbation. FINDINGS/IMPRESSION: Comparison is made with the exam of 02/16/18. The heart size is prominent. Aorta is tortuous. The lungs are expanded without focal areas of conso lidation, pneumothorax, adrian pulmonary edema, or pleural effusions. POS: OFF
[2018-02-21 10:23] LABS: ALT (SGPT) 52 U/L (8-55); AST (SGOT) 23 U/L (5-34); Albumin 4.1 g/dL (3.5-5.0); Alkaline Phosphatase 53 U/L (40-150); Anion Gap 12 mmol/L (10-20); BUN (Urea Nitrogen) 27 mg/dL (9.8-20.1); Bilirubin, Total 1.6 mg/dL (0.2-1.2); CK (CPK) 98 U/L (29-168); Calc. Creatinine Clearance 0 mL/min (70-130); Calcium 9.7 mg/dL (7.8-10.44); Carbon Dioxide 27 mmol/L (22-29); Chloride 107 mmol/L (98-107); Estimated GFR-MDRD 53; Globulin 2.3 g/dL (2.4-3.5); Glucose 94 mg/dL (70-105); Lipase 16 U/L (8-78); Potassium 4.1 mmol/L (3.5-5.1); Protein, Total 6.4 g/dL (6.0-8.3); Sodium 142 mmol/L (136-145)
[2018-02-21 10:26] LABS: CKMB 5.5 ng/mL (0-6.6); Troponin I 0.153 ng/mL (< 0.028)
[2018-02-21 10:47] LABS: Band 5 % (5-11); Eosinophils 1 % (0-10); Hypochromia SLIGHT = 6-15 cells (100X) (0-5/hpf); Large Platelets SLIGHT; Lymphocytes 16 % (21-51); MDiff Complete? YES; Microcytosis MODERATE=15-30 cells (100X) (0-5/hpf); Monocytes 14 % (0-10); Neutrophil 62 % (42-75); PLT Morphology Comment Appears Adequate; Polychromasia SLIGHT = 2-3 cells (100X) (0-2/hpf); Reactive Lymphocytes 2 % (0-10)
[2018-02-21] MEDS ORDERED: Ondansetron HCl/PF 4 MG/2 ML Vial ONE (11:37)
[2018-02-21] MEDS ORDERED: ISOVUE-370 76%-LOCM 1 ML ONE (12:54)
[2018-02-21] MEDS ORDERED: methylPREDNISolone Sod Succ/PF 125 MG/2 ML VIAL ONE (13:35)
[2018-02-21] MEDS ORDERED: Furosemide 40 MG/4 ML VIAL ONE (13:35)
[2018-02-21 13:48] LABS: Troponin I 0.099 ng/mL (< 0.028)
--- NOTE | 2018-02-21 14:31 | PDOC.FPRHP ---
- History of Present Illness Chief Complaint: SOB, nausea, chest tightness History of Present Illness: 57 yo AAF with PMHx severe COPD on O2 sent from clinic for SOB, nausea, and chest tightness. Pt discharged last week after an episode of theophylline toxicity. She started to have symptoms over the weekend. new chest symptom of pitching in left upper lobe. She only took one additional dose of theophylline. She has been taking all her home COPD meds for SOB. She also has had weight loss over the last few months and recent night sweats. ED Course: Patient was given albuterol, steroids, zofran, and lasix. - Allergies/Adverse Reactions Allergies Allergy/AdvReac Type Severity Reaction Status Date / Time lisinopril Allergy COUGH Verified 02/14/18 19:58 - Home Medications Medication Instructions Recorded Confirmed Type Amlodipine Besylate [amLODIPine 5 mg PO DAILY 06/21/16 02/21/18 History Besylate] Atorvastatin Calcium [Lipitor] 80 mg PO DAILY 06/21/16 02/21/18 History Calcium Carbonate [Calcium] 600 mg PO DAILY 06/21/16 02/21/18 History Ezetimibe [Zetia] 10 mg PO DAILY 06/21/16 02/21/18 History HYDROcodone Bit/APAP 10/325 [[place]] 1 tab PO Q6HR PRN 06/21/16 02/21/18 History Isosorbide Mononitrate [Isosorbide 30 mg PO BID 06/21/16 02/21/18 History Mononitrate ER] Pantoprazole [Protonix] 40 mg PO 2100 #0 tab 06/23/16 02/21/18 Rx Nebivolol HCl [Bystolic] 10 mg PO DAILY #0 tab 06/24/16 02/21/18 Rx Aspirin 325 mg PO DAILY 02/14/18 02/21/18 History Magnesium 250 mg PO DAILY 02/14/18 02/21/18 History Omeprazole 40 mg PO DAILY 02/14/18 02/21/18 History Tiotropium Switzer [Spiriva] 18 mcg INH DAILY 02/14/18 02/21/18 History rOPINIRole HCl [Ropinirole HCl] 0.5 mg PO DAILY 02/14/18 02/21/18 History Mometasone/Formoterol 200/5 2 puff INH BID #1 aer 02/16/18 02/21/18 Rx [Dulera 200 Mcg/5 Mcg Inhaler] predniSONE 10 mg PO Q2DAYS #14 tab 02/16/18 02/21/18 Rx - History PMHx: 1. COPD on 4L O2 via NC at baseline 2. HTN 3. HLD 4. DURGA on CPAP 5. Hx of CVA w/ LT sided residual weakness (2008) 6. GERD 7. OA PSHx: 1. Hysterectomy 2. Tonsillectomy 3. LT ovarian cyst removal 4. Lipoma removal on head FHx: sister and mother with lung ca; brother w/ esophageal ca Social: Tobacco: 1-2pks/yr for 30 yrs and quit 3yrs ago; no alcohol or drug use - Review of Systems General: reports: weight/appetite/sleep changes, night sweats (2 months). denies: fever/chills Eyes: denies: eye pain, vision changes ENT: reports: rhinorrhea. denies: nasal congestion Respiratory: reports: shortness of breath, exercise intolerance. denies: cough Cardiovascular: reports: chest pain, edema, paroxysmal nocturnal dyspnea Gastrointestinal: reports: nausea, vomiting, constipation. denies: diarrhea Genitourinary: denies: incontinence, dysuria Skin: denies: rashes, lesions Musculoskeletal: denies: pain, tenderness Neurological: reports: syncope. denies: numbness Psychological: reports: depression. denies: anxiety - Vital signs BP: 131/92 HR: 79 RR: 24 Tmax: 98.3 Pox: 96% on 4L Wt: 98kg - Physical Exam -Constitutional: Patient is not in distress, but she has increased WOB. She is obese and does not appear malnourished. alert and orientedx4 HEENT: normocephalic and atraumatic, PERRLA, EOMI, grossly normal hearing Neck: supple, FROM, trachea midline, no LAD, no JVD, no thyromegaly Chest: no-tender to palpation, no lesions Heart: RRR, normal S1/S2, no murmurs/rubs/gallops, pulses present, no edema Lungs: CTAB -Lungs: moderate air movment. mild wheeze in upper L lung Abdomen: soft, non-tender, bowel sounds present, no hernias Musculoskeletal: normal structure, normal tone, ROM grossly normal Neurological: no focal deficit, CN II-XII intact, normal sensation, DTRs 2+ Skin: good turgor, capillary refill <2 seconds, no jaundice -Skin: Small, darkly pigmented mole on Left lower abdomen above ASIS Heme/Lymphatic: no unusual bruising or bleeding, no purpura Psychiatric: normal mood and affect, good judgment and insight, intact recent and remote memory FMR H&P: Results - Labs Result Diagrams: 02/21/18 09:50 02/21/18 09:50 Lab results: WBC 14.4 thou/uL (4.8-10.8) H 02/21/18 09:50 Hgb 14.0 g/dL (12.0-16.0) 02/21/18 09:50 Hct 43.6 % (36.0-47.0) 02/21/18 09:50 MCV 68.0 fl (81.0-99.0) L 02/21/18 09:50 Plt Count 183 thou/uL (130-400) 02/21/18 09:50 Band Neuts % (Manual) 5 % (5-11) 02/21/18 09:50 Sodium 142 mmol/L (136-145) 02/21/18 09:50 Potassium 4.1 mmol/L (3.5-5.1) 02/21/18 09:50 Chloride 107 mmol/L (98-107) 02/21/18 09:50 Carbon Dioxide 27 mmol/L (22-29) 02/21/18 09:50 BUN 27 mg/dL (9.8-20.1) H 02/21/18 09:50 Creatinine 1.25 mg/dL (0.6-1.1) H 02/21/18 09:50 Glucose 94 mg/dL (70-105) 02/21/18 09:50 Calcium 9.7 mg/dL (7.8-10.44) 02/21/18 09:50 Total Bilirubin 1.6 mg/dL (0.2-1.2) H 02/21/18 09:50 AST 23 U/L (5-34) 02/21/18 09:50 ALT 52 U/L (8-55) 02/21/18 09:50 Alkaline Phosphatase 53 U/L (40-150) 02/21/18 09:50 Creatine Kinase 98 U/L (29-168) 02/21/18 09:50 CK-MB (CK-2) 5.5 ng/mL (0-6.6) 02/21/18 09:50 B-Natriuretic Peptide 1226.8 pg/mL (0-100) H 02/21/18 09:50 Serum Total Protein 6.4 g/dL (6.0-8.3) 02/21/18 09:50 Albumin 4.1 g/dL (3.5-5.0) 02/21/18 09:50 Lipase 16 U/L (8-78) 02/21/18 09:50 Trops: 1.53--> 0.99 - EKG Interpretation EKG: NSR with some T wave inversions in V2-V4 FMR H&P: A/P - Problem List (1) NSTEMI (non-ST elevated myocardial infarction) Current Visit: Yes Status: Acute Code(s): I21.4 - NON-ST ELEVATION (NSTEMI) MYOCARDIAL INFARCTION (2) Pulmonary HTN Current Visit: Yes Status: Suspected Code(s): I27.20 - PULMONARY HYPERTENSION, UNSPECIFIED (3) COPD (chronic obstructive pulmonary disease) Current Visit: No Status: Chronic (4) Coronary artery disease Current Visit: No Status: Chronic Code(s): I25.10 - ATHSCL HEART DISEASE OF [place] CORONARY ARTERY W/O ANG PCTRS (5) HTN (hypertension) Current Visit: No Status: Chronic Code(s): I10 - ESSENTIAL (PRIMARY) HYPERTENSION (6) History of CVA (cerebrovascular accident) Current Visit: No Status: Chronic Code(s): Z86.73 - PRSNL HX OF TIA (TIA), AND CEREB INFRC W/O RESID DEFICITS (7) Obstructive sleep apnea on CPAP Current Visit: No Status: Acute Code(s): G47.33 - OBSTRUCTIVE SLEEP APNEA ( ADULT) (PEDIATRIC); Z99.89 - DEPENDENCE ON OTHER ENABLING MACHINES AND DEVICES - Plan 1. NSTEMI- patient has new chest "pinching", nausea, pinching, and inverted T waves in v2-4. Will repeat EKG, follow troponins, consult cardiology, give asa. DDX includes PE vs COPD. Will order CTA to investigate. Started therapeutic lovenox. 2. Suspected pulmonary HTN- Will order echocardiogram. BNP is elevated. continue home o2. 3. severe, o2 dependent COPD- will continue home medical managment with increase from chronic steroids and duonebs q4. Continue home 02 of 3-5 L 4.weightloss and night sweats- will investigate occult malignancy with CTA and CT abdomen pelvis with contrast. she is up to date on colonoscopy and mammogram. Will get FOBT 5. HTN- continue home amlodipine. 6. DURGA- use home CPAP 7. Suspicious mole- dark, pigemented mole near L ASIS. Will need outpatient eliptical biopsy 8. DVT ppx- on therapeutic lovenox Disposition/LOS: inpatient. 3 days Attending Addendum - Attending Addendum Date/Time: 02/21/182139 I personally evaluated the patient and discussed the management with Dr. Mendes. I agree with and repeated the History, Examination, Assessment and Plan documented above with any addition or exceptions noted below.
[2018-02-21 15:31] VITALS: BMI 33.1
[2018-02-21 16:53] LABS: Troponin I 0.144 ng/mL (< 0.028)
[2018-02-21] MEDS ORDERED: Aspirin 300 MG Suppository PR SCH (17:30)
--- NOTE | 2018-02-21 20:05 | CT ---
CT OF THE ABDOMEN AND PELVIS WITH CONTRAST: 02/21/18 COMPARISON: None. HISTORY: Shortness of breath with concern for malignancy. Upper abdominal pain with nausea and vomiting. TECHNIQUE: Multiple contiguous axial images were obtained in a CT of the abdomen and pelvis with contrast. PO co ntrast was administered. Coronal reformats were performed. FINDINGS: Please see dedicated chest CT for findings above the diaphragm. The liver, gallbladder, adrenal gland s, spleen, and pancreas are unremarkable. Subcentimeter hypodensities in both kidneys likely represen t small cysts but are too small to definitely characterize. The large and small bowel are unremarkable. No obvious gastric abnormality is seen. No free air, free fluid, or stranding changes are seen in the abdomen or pelvis. The patient is status post hysterectomy. No abdominal or pelvic lymphadenopathy are seen. Atheroscler otic calcifications are seen in the aorta. Degenerative changes are seen in the spine. IMPRESSION: 1. No evidence of acute intra-abdominal/pelvic abnormality. 2. Bilateral renal cysts. POS: [facility]
--- NOTE | 2018-02-21 20:09 | CT ---
CTA OF THE CHEST WITH CONTRAST: 02/21/18 HISTORY: Shortness of breath. Concern for malignancy. TECHNIQUE: Multiple contiguous axial images were obtained in a CTA of the chest with contrast per pulmonary embo lis protocol. 3D oblique MIP reformats and direct coronal reformats were performed. FINDINGS: Please see dedicated abdominal CT for findings below the diaphragm. The pulmonary arteries are well o pacified without filling defects to suggest pulmonary emboli. The heart is normal in size without foc al cardiac abnormality. No hilar or mediastinal lymphadenopathy are seen. There is a trace right pleural effusion. A calcified granuloma is seen in the left lower lobe. Emphys ematous changes are seen in the lung apices. No suspicious pulmonary nodule is seen. Mild degenerative changes are seen in the spine. The chest wall soft tissues are unremarkable. IMPRESSION: 1. No evidence of pulmonary thromboembolism. 2. Trace right pleural effusion. POS: [facility]
[2018-02-21] MEDS ORDERED: FLU VACC QS2017-18 36 mo. & older 0.5 ML SYRINGE IM ONE (21:00)
[2018-02-21] MEDS ORDERED: Enoxaparin Sodium 100 MG/ML SYRINGE SC SCH (21:00)
[2018-02-21] MEDS: Atorvastatin Calcium 40 MG TAB PO SCH (22:11)
[2018-02-21] MEDS: Mometasone/Formoterol 120 PUFF INHALER INH SCH (22:21)
[2018-02-22 04:55] LABS: #Lymphocytes 1.4 thou/uL (1.20-3.40); #Monocytes 0.2 thou/uL (0.11-0.59); #Neutrophils 8.5 thou/uL (1.40-6.50); %Basophils 0.2 % (0.0-1.0); %Eosinophils 0.2 % (0.0-10.0); %Neutrophils 83.6 % (42.0-75.0); Hemoglobin 13.4 g/dL (12.0-16.0); Mean Corpuscular HGB CONC 32.4 g/dL (32.0-36.0); Mean Corpuscular Volume 68.1 fl (81.0-99.0); Mean Platelet Volume 6.9 fL (7.4-10.4); Platelet Count 166 thou/uL (130-400); RBC Distribution Width 16.9 % (11.5-14.5); White Blood Cell (WBC) Count 10.1 thou/uL (4.8-10.8)
[2018-02-22 05:03] LABS: Anion Gap 18 mmol/L (10-20); BUN (Urea Nitrogen) 32 mg/dL (9.8-20.1); Calc. Creatinine Clearance 66 mL/min (70-130); Calcium 9.6 mg/dL (7.8-10.44); Carbon Dioxide 21 mmol/L (22-29); Chloride 102 mmol/L (98-107); Estimated GFR-MDRD 44; Glucose 132 mg/dL (70-105); Potassium 3.7 mmol/L (3.5-5.1); Sodium 137 mmol/L (136-145)
[2018-02-22] MEDS: Mometasone/Formoterol 120 PUFF INHALER INH SCH ×2 (06:39→19:19)
[2018-02-22] MEDS: Magnesium Oxide 250 MG TAB PO SCH (08:29)
[2018-02-22] MEDS: Amlodipine 5 MG TAB PO SCH (08:29)
[2018-02-22] MEDS: Ezetimibe 10 MG TAB PO SCH (08:29)
[2018-02-22] MEDS: Nebivolol HCl 5 MG TAB PO SCH (08:30)
[2018-02-22] MEDS: predniSONE 20 MG TAB PO SCH (08:30)
[2018-02-22] MEDS: HYDROcodone/Acetaminophen 10/325 mg Tablet PO PRN ×3 (08:30→22:10)
[2018-02-22] MEDS ORDERED: Spiriva 18 MCG CAP (Box of 5 Caps) INH SCH (09:00)
[2018-02-22] MEDS ORDERED: rOPINIRole HCl 0.5 MG TAB PO SCH (09:00)
[2018-02-22 10:31] LABS: Troponin I 0.081 ng/mL (< 0.028)
[2018-02-22 10:36] LABS: CKMB 7.6 ng/mL (0-6.6)
--- NOTE | 2018-02-22 11:44 | PDOC.FM ---
- Subjective Subjective: No acute events overnight. Pt does still endorse SOB and chest pain that is lower sternum and epigastric in location, described as squeezing and w/ associated nausea. She had just walked the halls prior to my exam. Otherwise, no other complaints. - Objective Vital Signs & Weight: Vital Signs (12 hours) Temp Pulse Resp BP Pulse Ox 02/22/18 11:09 81 18 90 L 02/22/18 08:10 98.2 F 94 20 132/82 87 L 02/22/18 08:00 98.2 F 81 18 87 L 02/22/18 06:40 92 L 02/22/18 06:37 80 20 92 L 02/22/18 04:00 97.8 F 91 18 111/67 94 L 02/22/18 02:00 78 18 92 L Weight Weight 98.52 kg I&O: 02/21/18 02/22/18 02/23/18 06:59 06:59 06:59 Intake Total 240 Output Total 800 Balance -560 Result Diagrams: 02/22/18 03:41 02/22/18 03:41 EKG Reviewed by me: Yes (t-wave inversion resolved on latest EKG) Radiology Reviewed by me: Yes <Hiro Alberto - Last Filed: 02/22/18 11:42> - Objective Vital Signs & Weight: Vital Signs (12 hours) Temp Pulse Resp BP Pulse Ox 02/23/18 08:51 97.7 F 75 20 124/81 88 L 02/23/18 06:13 98.0 F 85 20 95/52 L 89 L 02/23/18 00:00 97.4 F L 87 20 90/60 92 L 02/22/18 22:41 91 L Weight Weight 96.434 kg I&O: 02/22/18 02/23/18 02/24/18 06:59 06:59 06:59 Intake Total 240 400 Output Total 800 400 Balance -560 0 Result Diagrams: 02/23/18 07:16 02/23/18 07:16 <Elvia Mcmullen - Last Filed: 02/23/18 08:55> Phys Exam - Physical Examination Mildly distressed, sitting up at bedside HEENT: PERRLA, sclera anicteric Neck: no nodes, no JVD Respiratory: no wheezing, no rales, no rhonchi, clear to auscultation bilateral Cardiovascular: RRR, no significant murmur, no rub Gastrointestinal: soft, non-tender, no distention, positive bowel sounds Musculoskeletal: pulses present Neurological: non-focal, moves all 4 limbs <Hiro Alberto - Last Filed: 02/22/18 11:42> Dx/Plan (1) NSTEMI (non-ST elevated myocardial infarction) Code(s): I21.4 - NON-ST ELEVATION (NSTEMI) MYOCARDIAL INFARCTION Status: Acute (2) Pulmonary HTN Code(s): I27.20 - PULMONARY HYPERTENSION, UNSPECIFIED Status: Suspected (3) Hyperlipidemia Code(s): E78.5 - HYPERLIPIDEMIA, UNSPECIFIED Status: Acute (4) Obstructive sleep apnea on CPAP Code(s): G47.33 - OBSTRUCTIVE SLEEP APNEA (ADULT) (PEDIATRIC); Z99.89 - DEPENDENCE ON OTHER ENABLING MACHINES AND DEVICES Status: Acute (5) COPD (chronic obstructive pulmonary disease) Status: Chronic (6) Coronary artery disease Code(s): I25.10 - ATHSCL HEART DISEASE OF [place] CORONARY ARTERY W/O ANG PCTRS Status: Chronic (7) HTN (hypertension) Code(s): I10 - ESSENTIAL (PRIMARY) HYPERTENSION Status: Chronic - Plan Plan: 1. NSTEMI, suspected- Indeterminent troponins with associated chest pressure and sob in conrtext of most recent troponins from 02/14 that were negative. The CK-MB has risen from 5.5 to 7.6, although repeat EKG this morning showed no t- wave inversion in the lateral or inferior leads. We have consulted cardiology and appreciate recommendations. Pts anticoagulation has been held until she is examined by cardiology. Repeat cardiac profile and trend CE's in the mean time. CTA was negative for PE. 2. Suspected pulmonary HTN- Echo pending. likely given DURGA and severe O2 dependent COPD. Consider sildenafil after resolution of acute symptoms. 3. severe, o2 dependent COPD- will continue home medical managment with increase from chronic steroids and duonebs q4. Continue home 02 of 3-5 L. Maintain O2 sats 88-92, currently on 4lNC and typically on 3lNC @ home. 4.weightloss and night sweats- cta chest abd/pelv negative for evidence of malignancy. consider OP workup. 5. HTN- continue home meds. BP stable. 6. DURGA- use home CPAP, continue 7. DVT ppx- was on therapeutic lovenox, held until cardiology has examined pt. Continue ppx dose if cards determines no intervention necessary. <Hiro Alberto - Last Filed: 02/22/18 11:42> Attending Addendum - Attending Addendum Date/Time: 02/23/18 0853 I personally evaluated the patient and discussed the management with Dr. Alberto and Dr. Man I agree with the History, Examination, Assessment and Plan documented above with any addition or exceptions noted below. 57 yo female with severe pulmonary disease admitted for NSTEMI HD#1 Still with some CP at times. Card to perform LHC today. Awaiting results. Will have pulm evaluate as well. Likely pulm HTN. ECHO reviewed. Awaiting official dx after LHC. Continue current management at this time. Araseli <Elvia Mcmullen - Last Filed: 02/23/18 08:55>
[2018-02-22 12:59] LABS: Troponin I 0.142 ng/mL (< 0.028)
[2018-02-22 13:07] LABS: CKMB 10.8 ng/mL (0-6.6)
[2018-02-22 18:25] LABS: Troponin I 0.177 ng/mL (< 0.028)
[2018-02-22 18:29] LABS: CKMB 12.4 ng/mL (0-6.6)
[2018-02-22] MEDS: Atorvastatin Calcium 40 MG TAB PO SCH (21:56)
[2018-02-22] MEDS: rOPINIRole HCl 0.5 MG TAB PO SCH (21:56)
[2018-02-23] MEDS ORDERED: Enoxaparin Sodium 100 MG/ML SYRINGE SC SCH (00:45)
[2018-02-23 01:24] LABS: Critical Call CKMBM RESULT DECREASING; Troponin I 0.221 ng/mL (< 0.028)
[2018-02-23] MEDS ORDERED: Heparin 10,000 UNITS/1 ML VIAL ONE (07:12)
[2018-02-23] MEDS ORDERED: Lidocaine 1% (PF) 30 ML VIAL ONE (07:17)
[2018-02-23] MEDS: Nebivolol HCl 5 MG TAB PO SCH (07:21)
[2018-02-23] MEDS ORDERED: Iopamidol 370 76% 50 ML VIAL FS ONE (07:26)
[2018-02-23] MEDS ORDERED: Iopamidol 370 76% 100 ML VIAL ONE (07:26)
[2018-02-23] MEDS ORDERED: Sodium Chloride 0.9% 1,000 ML IV SCH (07:30)
[2018-02-23] MEDS ORDERED: Communication Order-Pharmacy FS SCH (07:30)
[2018-02-23] MEDS ORDERED: Fentanyl 250 MCG/5 ML VIAL ONE (07:42)
[2018-02-23] MEDS ORDERED: Midazolam HCl 2 mg/2 ml Vial ONE (07:42)
[2018-02-23 07:45] LABS: Anion Gap 17 mmol/L (10-20); BUN (Urea Nitrogen) 35 mg/dL (9.8-20.1); CK (CPK) 110 U/L (29-168); Calc. Creatinine Clearance 56 mL/min (70-130); Calcium 9.5 mg/dL (7.8-10.44); Carbon Dioxide 21 mmol/L (22-29); Chloride 106 mmol/L (98-107); Estimated GFR-MDRD 38; Glucose 123 mg/dL (70-105); Sodium 140 mmol/L (136-145)
[2018-02-23 07:50] LABS: Troponin I 0.259 ng/mL (< 0.028)
[2018-02-23 07:52] LABS: CKMB 10.7 ng/mL (0-6.6); Critical Call CKMBM RESULT DECREASING
[2018-02-23 07:53] LABS: Band 4 % (5-11); Hemoglobin 13.4 g/dL (12.0-16.0); Lymphocytes 30 % (21-51); MDiff Complete? YES; Mean Corpuscular HGB CONC 32.3 g/dL (32.0-36.0); Mean Corpuscular Hemoglobin 22.2 pg (27.0-31.0); Mean Corpuscular Volume 68.5 fl (81.0-99.0); Mean Platelet Volume 7.7 fL (7.4-10.4); Microcytosis SLIGHT = 6-15 cells (100X) (0-5/hpf); Monocytes 3 % (0-10); Neutrophil 63 % (42-75); Nucleated RBC 1 % (0); Ovalocytes SLIGHT = 2-5 cells (100X) (0-1/hpf); Platelet Count 173 thou/uL (130-400); Polychromasia SLIGHT = 2-3 cells (100X) (0-2/hpf); Red Blood Cell (RBC) Count 6.02 mill/uL (4.20-5.40); Schistocytes SLIGHT = 2-5 cells (100X) (0-1/hpf)
[2018-02-23] MEDS ORDERED: traMADol HCl 50 MG TAB PO PRN (08:31)
[2018-02-23] MEDS ORDERED: Nitroglycerin 0.4 MG TAB (25 Tab Bottle) SL PRN (08:31)
[2018-02-23] MEDS ORDERED: Acetaminophen/Codeine 30-300mg Tablet PO PRN ×2 (08:31)
[2018-02-23] MEDS ORDERED: Sodium Chloride 0.9% 200 ML IV SCH (08:45)
[2018-02-23] MEDS: Sodium Chloride 0.9% 1,000 ML IV SCH ×3 (08:55→16:57)
--- NOTE | 2018-02-23 09:33 | PDOC.FM ---
- Subjective Subjective: No acute events overnight. Pt had just returned from cardiac cath when I examined her. She stated she was feeling better today and report per nurse was that there was no severe vessel disease/no stents. Only complaint is constipation. Denies CP, SOB, NVDC. - Objective Vital Signs & Weight: Vital Signs (12 hours) Temp Pulse Resp BP Pulse Ox 02/23/18 08:51 97.7 F 75 20 124/81 88 L 02/23/18 06:13 98.0 F 85 20 95/52 L 89 L 02/23/18 00:00 97.4 F L 87 20 90/60 92 L 02/22/18 22:41 91 L Weight Weight 96.434 kg I&O: 02/22/18 02/23/18 02/24/18 06:59 06:59 06:59 Intake Total 240 400 Output Total 800 400 Balance -560 0 Result Diagrams: 02/23/18 07:16 02/23/18 07:16 <Hiro Alberto - Last Filed: 02/23/18 09:45> - Objective Vital Signs & Weight: Vital Signs (12 hours) Temp Pulse Resp BP BP Pulse Ox 02/23/18 16:07 82 16 02/23/18 16:03 97.9 F 76 20 101/71 89 L 02/23/18 12:04 98.2 F 80 20 134/86 89 L 02/23/18 11:27 75 16 02/23/18 11:19 92 L 02/23/18 11:18 75 16 02/23/18 08:51 97.7 F 75 20 124/81 88 L 02/23/18 08:00 97.7 F 75 20 88 L 02/23/18 06:13 98.0 F 85 20 95/52 L 89 L Weight Weight 96.434 kg I&O: 02/22/18 02/23/18 02/24/18 06:59 06:59 06:59 Intake Total 240 400 Output Total 800 400 Balance -560 0 Result Diagrams: 02/23/18 07:16 02/23/18 07:16 <Elvia Mcmullen - Last Filed: 02/23/18 16:35> Phys Exam - Physical Examination Constitutional: NAD HEENT: PERRLA, sclera anicteric Neck: no nodes, no JVD Respiratory: no wheezing, no rales, no rhonchi, clear to auscultation bilateral Cardiovascular: RRR, no significant murmur, no rub Gastrointestinal: soft, non-tender, no distention, positive bowel sounds Musculoskeletal: no edema, pulses present Neurological: non-focal, moves all 4 limbs Skin: no rash <Hiro Alberto - Last Filed: 02/23/18 09:45> Dx/Plan (1) NSTEMI (non-ST elevated myocardial infarction) Code(s): I21.4 - NON-ST ELEVATION (NSTEMI) MYOCARDIAL INFARCTION Status: Acute (2) Pulmonary HTN Code(s): I27.20 - PULMONARY HYPERTENSION, UNSPECIFIED Status: Suspected (3) Hyperlipidemia Code(s): E78.5 - HYPERLIPIDEMIA, UNSPECIFIED Status: Acute (4) Obstructive sleep apnea on CPAP Code(s): G47.33 - OBSTRUCTIVE SLEEP APNEA (ADULT) (PEDIATRIC); Z99.89 - DEPENDENCE ON OTHER ENABLING MACHINES AND DEVICES Status: Acute (5) COPD (chronic obstructive pulmonary disease) Status: Chronic (6) Coronary artery disease Code(s): I25.10 - ATHSCL HEART DISEASE OF [place] CORONARY ARTERY W/O ANG PCTRS Status: Chronic (7) HTN (hypertension) Code(s): I10 - ESSENTIAL (PRIMARY) HYPERTENSION Status: Chronic - Plan Plan: 1. NSTEMI, suspected- Indeterminent troponins likely 2/2 demand ischemia, elevated CK-MB and cath report showed only minimal vessel disease. Cardiology consulted, appreciate recs. 2. Suspected pulmonary HTN- consider OP workup/rt sided card cath 3. severe, o2 dependent COPD- will continue home medical managment with increase from chronic steroids and duonebs q4. Continue home 02 of 3-5 L. Maintain O2 sats 88-92, currently on 4lNC and typically on 3lNC @ home. Has maintained sats with 4 L NC, continue plan of care 4.weightloss and night sweats- cta chest abd pelvis showed no evidence of malignancy. Pt shows no signs of infection. Elevated wbc 2/2 steroids. VSS. Possibly 2/2 severity of her lung disease. 5. HTN- continue home meds. BP stable. continue plan of care 6. DURGA- use home CPAP, continue. No changes. 7. DVT ppx- cath report showed no evidence of occlusion. PPx lovenox, no need for therapeutic. <Hiro Alberto - Last Filed: 02/23/18 09:45> Attending Addendum - Attending Addendum Date/Time: 02/23/18 8614 I personally evaluated the patient and discussed the management with Dr. Alberto and Dr. Man I agree with the History, Examination, Assessment and Plan documented above with any addition or exceptions noted below. 57 yo female with severe pulmonary disease admitted for ACS rule out. HD#2 Feeling well this morning. s/p LHC. No obstructing lesions. Elevated PA pressures with dilated right heart. Pulm HTN: Will discuss with pulm today. Unsure etiology but has history of COPD. On home O2. Does not appear to be symptomatic at rest. Symptoms present with exertion. COPD: Maximize therapy Once symptoms improved will be ok for d/c as long as patient has O2 at home. ABrayMD <Elvia Mcmullen - Last Filed: 02/23/18 16:35>
[2018-02-23] MEDS: Mometasone/Formoterol 120 PUFF INHALER INH SCH ×2 (11:27→19:25)
--- NOTE | 2018-02-23 12:02 | CON ---
DATE OF ADMISSION: 02/21/2018 DATE OF CONSULTATION: 02/22/2018 INDICATION FOR CONSULTATION: A 57-year-old female with chest pain, COPD, history of coronary artery disease with the form of aneurysms. HISTORY OF PRESENT ILLNESS: This very unfortunate 57-year-old -[place] female who has a hist ory of severe COPD, has had cardiac catheterization in 2008. She was found to have an aneurysmal for mation in the left anterior descending artery, I believe she underwent cardiac catheterization by Dr. Lagos several years ago and was found to have no significant stenosis, but did have some aneurysm al formation in the left anterior descending artery. She had then changed insurance companies and wa s then followed by different physicians, different cardiologists. Her most recent follow was in the last year where she had an echocardiogram and an event monitor, which did not show any evidence of is chemia; however, which did not show any significant abnormalities according to the patient. She does have a history apparently of COPD, but this is somewhat questionable as she has been on theophylline , but then was told by some physicians to stop taking the medicine. She did have some 20% stenosis i n proximal right coronary artery and 20% stenosis in the left main. The aneurysmal formations were i n the proximal circumflex and the proximal left anterior descending artery. Ejection fraction at job t time was 55% to 60%. Today, she did have an echocardiogram which also shows a normal ejection frac tion, but she does have right ventricular and right atrial dilatation. She stated that she has been having some nausea, vomiting, and some diaphoresis especially when she exerts herself, she gets some lower sternal or upper epigastric shoulder discomfort. She has chronic left upper shoulder pain, but if she exerts herself she gets the lower midsternal pain. She describes the pain in the left should er as being constant. When she arrived, her cardiac enzymes were somewhat indeterminate at 0.153 as peaked that was the highest thus far. She then decreased her enzymes and then went kind of up and do wn, the lowest was 0.081 and the most recent one was 0.142. The MB on admission was 5.5, has increas ed up to 10.8. Her EKG shows some nonspecific changes, but does show evidence of normal sinus rhythm with right ventricular hypertrophy, but no other acute changes were noted. She does have some nonsp ecific changes. She had a CT scan which showed no evidence of pulmonary emboli. She has some eviden ce for a very small pleural effusion on the right side. At this time, she denies any pain, but says that she does even goes to the bathroom, she does get more short of breath. She noticed that her dis comfort started about 2 to 3 years ago with exertion, but apparently has been no further cardiac cath eterization since 2008. She describes the pain in the shoulder as being more of a pinching and a sha rp pain, but she does have the heavier type pain in the chest area. She also gives a history of havi ng sleep apnea and she uses a CPAP mask. She did suffer a CVA in 2004 and has some left hemiparesis, mainly involving the left lower extremity. 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 She did have improvement and then went home, she started back o n much lower dose of theophylline and the nausea and vomiting recurred. She has also been treated fo r her pulmonary problems with DuoNeb, Symbicort, Spiriva, and steroids. Her past medical history is significant for possible COPD, but I am uncertain of that diagnosis. She does seem to have some pulm onary hypertension based on the right ventricular dilatation, right atrial dilatation, and high press ures noted on the echocardiogram with severe tricuspid valve regurgitation. She did have elevated ri ght ventricular pressures at least I believe that over 70 mmHg, compatible for at least moderate to s evere pulmonary hypertension. She denies any significant lower extremity edema; however, which does not speak much for pulmonary hypertension, usually we will see this with severe right-sided failure. She did smoke in the past, but stopped in 2013. PAST MEDICAL HISTORY: Significant for the coronary disease as noted above. She has a CVA in 2004 or 2005. She has history of hypertension and hypercholesterolemia. She does have some cocaine use in the past. She has had a negative stress test in 2013 and 2015. Apparently, she has a normal sinus r hythm with occasional palpitations. She had a monitor placed, she has had sleep apnea for which she wears a CPAP mask. She has had some venous insufficiency noted by venous evaluation in 07/2015. She has had a left ovarian cyst. She has had a partial hysterectomy. She has had tonsillectomy and tub al ligation. ALLERGIES: She says she is allergic to LISINOPRIL, which causes her to cough, but more of an intoler ance. MEDICATIONS: At this time include Norvasc 5 mg a day, atorvastatin 80 mg a day. She is on Lovenox 1 00 mg q.12 hours, Zetia 10 mg a day. She is on hydrocodone/APAP one tablet q.6 hours p.r.n. for pain , DuoNeb, isosorbide mononitrate 30 mg b.i.d., magnesium oxide 250 mg q. day. She is on nebulizer an d inhalers. She is on Bystolic 10 mg a day, Protonix 40 mg a day, prednisone 40 mg a day, Requip 0.5 mg a day. She is also taking steroid inhaler 2 puffs b.i.d. REVIEW OF SYSTEMS: HEENT: She says she has some visual problems with occasional blurred vision. Erica wilson recently had a glasses change, but still had had some problems seen. Pulmonary: She complains of what may be COPD. She has been seen by Dr. Mandujano in the past. She has had problems with theophylline toxicity, but she has had no recent pneumonias or hemoptysis or bowel syndromes. Gastrointestinal: She has had the nausea and vomiting for about a week and also has constipation. Otherwise, she justin ed any hematemesis or any other bleeding problems. Genitourinary: She has had a history of nephroli thiasis, but none recently. She had no complaints such as dysuria, polyuria, or hematuria. Neuro logic: She had no seizures, but she said the last Monday she did have a syncopal episode which certa inly could have been a seizure, but she is uncertain. She just found herself on the floor and then m ost likely a syncopal episode. She has occasional lower extremity edema. FAMILY HISTORY: Unremarkable for any early heart disease. PHYSICAL EXAMINATION: GENERAL: Reveals a well-developed, well-nourished female who is in no acute distress at this time. She is alert and oriented. VITAL SIGNS: Her blood pressure is 132/82, O2 saturation 87% on the last evaluation on 2 liters of o xygen, temperature is 98.2, heart rate 94 and shows a regular rhythm, respiratory rate is about 20. HEENT: Shows the head to be normocephalic, atraumatic. Carotid pulses are present. I did not hear any bruits at this time. CHEST: I do not hear any significant rales, rhonchi or wheezing. She does have decreased breath shannan nds throughout. CARDIOVASCULAR: Regular rate and rhythm is noted. She does have what appears to be a slight promine nce of the right side, although the right ventricle just to the left of the sternal border, but did n ot hear any heaves or thrills or any significant murmurs. ABDOMEN: Shows obesity with positive bowel sounds. No organomegaly or masses are noted. EXTREMITIES: Femoral pulses are present. Extremities showed no clubbing, cyanosis or edema. At thi s time, pedal pulses also are present. NEUROLOGIC: She has left-sided weakness more so on the left lower extremity than the upper extremity , but also she has weakness in the left upper extremity. SKIN: Warm and dry. LABORATORY DATA: Shows a theophylline level of 4.0. Her sodium is 137, potassium is 3.7. Her BUN w as 32 with a creatinine of 1.47, blood sugar was 132. Her troponin I as noted above. Her BNP was el evated at 1226. Hematology shows white blood cell count 10.1 on admission was 14.4, hemoglobin was 1 3.4, the hematocrit of 41.5, and platelet count was 166,000. Her EKG shows a normal sinus rhythm with right ventricular hypertrophy and nonspecific ST segment jeff nges. Echocardiogram showed right ventricular and right atrial dilatation. She has moderate to cedric re tricuspid valve regurgitation compatible with pulmonary hypertension. Ejection fraction was mahnaz l at 60% to 65%. IMPRESSION: 1. Chest pain and abnormal cardiac enzymes which could indicate a non-ST segment elevation myocardia l infarction. The elevation of cardiac enzymes may be due to demand ischemia. She does appear to be had some degree of right-sided failure, also with dilatation of the right ventricle, but there was n o indication the patient suffered a pulmonary emboli and was negative by CT scan. She may need to un dergo repeat cardiac catheterization as she did have some mild stenosis in the left main as well as i n the right coronary in the past and had aneurysmal formations in the left anterior descending artery and in the proximal left circumflex. She has had negative stress test in the past, but symptoms are somewhat suspicious for underlying coronary artery disease, also with the addition of the abnormal c ardiac enzymes. 2. What appears to be right ventricular hypertrophy. There is no indication the patient has had an atrial septal defect or ventricular septal defect in the past, but this may be due to pulmonary probl ems and she appears to have pulmonary hypertension of uncertain etiology. This may need to be evalua mona further by the tire repairman and medications may need to be adjusted. 3. Status post cerebrovascular accident. She appears to be stable at this time. 4. History of hypertension, this is under reasonable control. We will continue to monitor blood pre ssure. Further care of the patient will be dictated by Dr. Lagos when he visits the patient eithe r today or tomorrow morning. I will keep her n.p.o. after midnight tonight for possible cardiac cath eterization tomorrow as this may be the most definitive evaluation to determine whether or not she dixon s underlying coronary artery disease, may also consider right heart catheterization for evaluation of the pulmonary artery pressures.
[2018-02-23] MEDS: Ezetimibe 10 MG TAB PO SCH (12:09)
[2018-02-23] MEDS: Magnesium Oxide 250 MG TAB PO SCH (12:09)
[2018-02-23] MEDS: Amlodipine 5 MG TAB PO SCH (12:09)
[2018-02-23] MEDS: predniSONE 20 MG TAB PO SCH (12:09)
[2018-02-23] MEDS: HYDROcodone/Acetaminophen 10/325 mg Tablet PO PRN ×2 (12:11→20:12)
[2018-02-23] MEDS ORDERED: Polyethylene Glycol 3350 17 GM Packet PO SCH (17:45)
[2018-02-23 18:19] LABS: HIV (1/2) Antibody/Antigen Non-Reactive (NonReactive)
[2018-02-23] MEDS: rOPINIRole HCl 0.5 MG TAB PO SCH (20:12)
[2018-02-23] MEDS: Atorvastatin Calcium 40 MG TAB PO SCH (20:12)
[2018-02-24 06:01] LABS: Anion Gap 15 mmol/L (10-20); BUN (Urea Nitrogen) 32 mg/dL (9.8-20.1); Calc. Creatinine Clearance 77 mL/min (70-130); Calcium 9.2 mg/dL (7.8-10.44); Carbon Dioxide 20 mmol/L (22-29); Chloride 107 mmol/L (98-107); Estimated GFR-MDRD 53; Glucose 122 mg/dL (70-105); Potassium 4.7 mmol/L (3.5-5.1); Sodium 137 mmol/L (136-145)
--- NOTE | 2018-02-24 06:02 | PDOC.FM ---
- Subjective Subjective: Pt had some episodes of hypoxia overnight while on CPAP and NC. This appears to be a recurrence for the past two nights that she has been here. She has oxygen at home and normally requires 3L. Here during the day, she has been requiring 4L. She also endorses LUJAN when she takes her oxygen off to go to the bathroom. She also is complaining of some abdominal pain that she thinks is constipation as she has not had a bowel movement since being here. - Objective MAR Reviewed: Yes Vital Signs & Weight: Vital Signs (12 hours) Temp Pulse Resp BP Pulse Ox 02/24/18 04:29 85 L 02/24/18 04:00 97.6 F 72 15 120/76 98 02/23/18 22:57 86 L 02/23/18 20:12 97.5 F L 76 20 96 02/23/18 19:45 97.5 F L 76 20 124/81 96 02/23/18 19:26 82 L 02/23/18 19:25 82 L Weight Weight 98.157 kg I&O: 02/22/18 02/23/18 02/24/18 06:59 06:59 06:59 Intake Total 240 400 720 Output Total 800 400 600 Balance -560 0 120 Result Diagrams: 02/24/18 04:14 02/24/18 04:14 <Siobhan Liang - Last Filed: 02/24/18 11:23> - Objective Vital Signs & Weight: Vital Signs (12 hours) Temp Pulse Resp BP Pulse Ox 02/24/18 08:52 80 16 02/24/18 08:41 86 L 02/24/18 08:37 80 16 02/24/18 07:52 96.6 F L 82 20 90 L 02/24/18 07:28 96.6 F L 82 20 138/91 H 91 L 02/24/18 04:29 85 L 02/24/18 04:00 97.6 F 72 15 120/76 98 Weight Weight 98.157 kg I&O: 02/23/18 02/24/18 02/25/18 06:59 06:59 06:59 Intake Total 400 1820 Output Total 400 600 Balance 0 1220 Result Diagrams: 02/24/18 04:14 02/24/18 04:14 <Ruben Noyola - Last Filed: 02/24/18 11:36> Phys Exam - Physical Examination Constitutional: NAD HEENT: PERRLA, sclera anicteric Neck: no JVD Respiratory: no wheezing, no rales, no rhonchi, clear to auscultation bilateral Cardiovascular: RRR, no significant murmur Gastrointestinal: soft, non-tender, no distention Musculoskeletal: no edema, pulses present Neurological: non-focal, normal sensation Psychiatric: normal affect, A&O x 3 <Huey Liangna - Last Filed: 02/24/18 11:23> Dx/Plan (1) NSTEMI (non-ST elevated myocardial infarction) Code(s): I21.4 - NON-ST ELEVATION (NSTEMI) MYOCARDIAL INFARCTION Status: Acute (2) Pulmonary HTN Code(s): I27.20 - PULMONARY HYPERTENSION, UNSPECIFIED Status: Suspected (3) Hyperlipidemia Code(s): E78.5 - HYPERLIPIDEMIA, UNSPECIFIED Status: Acute (4) Obstructive sleep apnea on CPAP Code(s): G47.33 - OBSTRUCTIVE SLEEP APNEA (ADULT) (PEDIATRIC); Z99.89 - DEPENDENCE ON OTHER ENABLING MACHINES AND DEVICES Status: Acute (5) COPD (chronic obstructive pulmonary disease) Status: Chronic (6) Coronary artery disease Code(s): I25.10 - ATHSCL HEART DISEASE OF [place] CORONARY ARTERY W/O ANG PCTRS Status: Chronic (7) Anemia Code(s): D64.9 - ANEMIA, UNSPECIFIED Status: Chronic QualifierTitle: Anemia type: iron deficiency (8) HTN (hypertension) Code(s): I10 - ESSENTIAL (PRIMARY) HYPERTENSION Status: Chronic (9) Gastroesophageal reflux disease Code(s): K21.9 - GASTRO-ESOPHAGEAL REFLUX DISEASE WITHOUT ESOPHAGITIS Status: Chronic (10) History of CVA (cerebrovascular accident) Code(s): Z86.73 - PRSNL HX OF TIA (TIA), AND CEREB INFRC W/O RESID DEFICITS Status: Chronic - Plan Plan: 57 yo female who initially presented with nausea, sob, and chest pain admitted for an NSTEMI s/p cath yesterday with no obstructive disease found, but suspected pulmonary hypertension. 1. NSTEMI, suspected- Indeterminent troponins likely 2/2 demand ischemia, elevated CK-MB and cath report showed only minimal vessel disease. Cardiology consulted, appreciate recs. Recommend follow-up with cardiology upon discharge. 2. Suspected pulmonary HTN- Recommend follow-up with pulmonology outpatient. 3. Chronic hypoxic respiratory failure 2/2 severe COPD- Will continue home medical management with increase on chronic steroids and duonebs q4h scheduled. Continue home 02 of 3-5 L. Maintain O2 sats 88-92, currently on 4lNC and typically on 3lNC @ home. Continue CPAP at night. Pt needs to have her family bring her portable O2 to leave the hospital upon discharge. 4.COPD-see above 5 HTN- continue home meds. BP stable. continue plan of care 6 DURGA- use home CPAP, continue. No changes. 7. Weightloss and night sweats- cta chest abd pelvis showed no evidence of malignancy. Pt shows no signs of infection. Elevated wbc 2/2 steroids. VSS. Possibly 2/2 severity of her lung disease. 8. Constipation-pt currently on lactulose. Ordered a stool softener ND and senna prn. Pt needs to have a bowel movement before discharge. Recommend an enema this afternoon if needed. 9. DVT ppx- cath report showed no evidence of occlusion. PPx lovenox, no need for therapeutic. Dispo: pt can be discharged later today if maintaining saturation and has a bowel movement. <Siobhan Liang - Last Filed: 02/24/18 11:23> Attending Addendum - Attending Addendum Date/Time: 02/24/18 0737 I personally evaluated the patient and discussed the management with Dr. William Loyola. I agree with the History, Examination, Assessment and Plan documented above with any addition or exceptions noted below. Patient reports some abdominal pain this morning, likely related to not having a bowel movement in several days. We will work to fix this today as it could be contributing to her mildly increased shortness of breath. She is overall at baseline O2 requirement and activity level. If she maintains currents sats through the day and can have a bowel movement, should be ready for discharge home. <Ruben Noyola - Last Filed: 02/24/18 11:36>
[2018-02-24 06:55] LABS: Hemoglobin 13.4 g/dL (12.0-16.0); Mean Corpuscular HGB CONC 31.9 g/dL (32.0-36.0); Mean Corpuscular Hemoglobin 22.3 pg (27.0-31.0); Mean Corpuscular Volume 69.8 fl (81.0-99.0); Mean Platelet Volume 7.5 fL (7.4-10.4); Platelet Count 148 thou/uL (130-400); RBC Distribution Width 17.5 % (11.5-14.5); Red Blood Cell (RBC) Count 5.99 mill/uL (4.20-5.40); White Blood Cell (WBC) Count 12.9 thou/uL (4.8-10.8)
[2018-02-24 06:56] LABS: Anisocytosis SLIGHT = 6-15 cells (100X) (0-5/hpf); Band 3 % (5-11); Hypochromia SLIGHT = 6-15 cells (100X) (0-5/hpf); Lymphocytes 14 % (21-51); MDiff Complete? YES; Microcytosis SLIGHT = 6-15 cells (100X) (0-5/hpf); Monocytes 1 % (0-10); Neutrophil 82 % (42-75); Polychromasia SLIGHT = 2-3 cells (100X) (0-2/hpf); Schistocytes SLIGHT = 2-5 cells (100X) (0-1/hpf)
[2018-02-24] MEDS: Mometasone/Formoterol 120 PUFF INHALER INH SCH ×2 (08:52→19:12)
[2018-02-24] MEDS: Ezetimibe 10 MG TAB PO SCH (09:42)
[2018-02-24] MEDS: Magnesium Oxide 250 MG TAB PO SCH (09:42)
[2018-02-24] MEDS: Polyethylene Glycol 3350 17 GM Packet PO SCH (09:42)
[2018-02-24] MEDS: Nebivolol HCl 5 MG TAB PO SCH (09:42)
[2018-02-24] MEDS: Amlodipine 5 MG TAB PO SCH (09:42)
[2018-02-24] MEDS: predniSONE 20 MG TAB PO SCH (09:42)
[2018-02-24] MEDS: HYDROcodone/Acetaminophen 10/325 mg Tablet PO PRN ×2 (09:46→18:07)
[2018-02-24] MEDS ORDERED: Docusate 100 MG CAP PO SCH (11:30)
[2018-02-24] MEDS ORDERED: Senokot 8.6 MG TAB PO SCH (11:30)
[2018-02-24] MEDS ORDERED: Bisacodyl 10 MG SUPP PR SCH (11:30)
[2018-02-24] MEDS: Sodium Chloride 0.9% 1,000 ML IV SCH (11:45)
[2018-02-24] MEDS: Docusate 100 MG CAP PO SCH (20:07)
[2018-02-24] MEDS: rOPINIRole HCl 0.5 MG TAB PO SCH (20:07)
[2018-02-24] MEDS: Atorvastatin Calcium 40 MG TAB PO SCH (20:07)
[2018-02-24] MEDS ORDERED: Fleet Enema 133 ML BOT FS SCH (23:00)
[2018-02-25 05:37] LABS: Anion Gap 15 mmol/L (10-20); BUN (Urea Nitrogen) 25 mg/dL (9.8-20.1); Calc. Creatinine Clearance 95 mL/min (70-130); Calcium 9.3 mg/dL (7.8-10.44); Carbon Dioxide 21 mmol/L (22-29); Chloride 109 mmol/L (98-107); Estimated GFR-MDRD 70; Glucose 106 mg/dL (70-105); Potassium 4.2 mmol/L (3.5-5.1); Sodium 141 mmol/L (136-145)
[2018-02-25 05:56] LABS: Anisocytosis SLIGHT = 6-15 cells (100X) (0-5/hpf); Band 7 % (5-11); Hemoglobin 12.7 g/dL (12.0-16.0); Lymphocytes 15 % (21-51); MDiff Complete? YES; Mean Corpuscular HGB CONC 32.1 g/dL (32.0-36.0); Mean Corpuscular Hemoglobin 22.4 pg (27.0-31.0); Mean Corpuscular Volume 69.7 fl (81.0-99.0); Mean Platelet Volume 7.1 fL (7.4-10.4); Monocytes 3 % (0-10); Neutrophil 75 % (42-75); PLT Morphology Comment Appears Decreased; Platelet Count 126 thou/uL (130-400); RBC Distribution Width 17.4 % (11.5-14.5); Red Blood Cell (RBC) Count 5.67 mill/uL (4.20-5.40); White Blood Cell (WBC) Count 12.7 thou/uL (4.8-10.8)
--- NOTE | 2018-02-25 06:28 | PDOC.FM ---
- Subjective Subjective: Pt had a fleet enema this am and had a bowel movement after that. She denies abdominal pain this am since the bowel movement. She has been maintaining her sats in the upper 80s on CPAP overnight and 4L of O2 during the day. She denies any complaints today and desires to go home. - Objective MAR Reviewed: Yes Vital Signs & Weight: Vital Signs (12 hours) Temp Pulse Resp BP Pulse Ox 02/25/18 04:26 97.9 F 86 17 110/66 97 02/25/18 02:16 88 L 02/24/18 23:18 89 L 02/24/18 20:07 97.6 F 85 19 88 L 02/24/18 19:14 88 L 02/24/18 19:12 85 18 88 L 02/24/18 19:05 97.6 F 81 20 129/91 H 88 L Weight Weight 96.162 kg I&O: 02/23/18 02/24/18 02/25/18 06:59 06:59 06:59 Intake Total 400 1820 1200 Output Total 400 600 Balance 0 1220 1200 Result Diagrams: 02/25/18 04:11 02/25/18 04:11 <Siobhan Liang - Last Filed: 02/25/18 09:18> - Objective Vital Signs & Weight: Vital Signs (12 hours) Temp Pulse Resp BP BP BP Pulse Ox 02/25/18 08:20 94 120/78 02/25/18 08:19 98.3 F 94 22 H 120/78 92 L 02/25/18 07:25 82 16 02/25/18 07:16 86 16 02/25/18 04:26 97.9 F 86 17 110/66 97 02/25/18 02:16 88 L 02/24/18 23:18 89 L Weight Weight 96.162 kg I&O: 02/24/18 02/25/18 02/26/18 06:59 06:59 06:59 Intake Total 1820 1200 Output Total 600 Balance 1220 1200 Result Diagrams: 02/25/18 04:11 02/25/18 04:11 <Ruben Noyola - Last Filed: 02/25/18 11:11> Phys Exam - Physical Examination Constitutional: NAD Respiratory: no wheezing, no rales, no rhonchi, clear to auscultation bilateral Cardiovascular: RRR, no significant murmur Gastrointestinal: soft, non-tender, no distention Musculoskeletal: no edema, pulses present Neurological: non-focal, normal sensation Psychiatric: normal affect, A&O x 3 <GarthSiobhan - Last Filed: 02/25/18 09:18> Dx/Plan (1) NSTEMI (non-ST elevated myocardial infarction) Code(s): I21.4 - NON-ST ELEVATION (NSTEMI) MYOCARDIAL INFARCTION Status: Acute (2) Pulmonary HTN Code(s): I27.20 - PULMONARY HYPERTENSION, UNSPECIFIED Status: Suspected (3) Hyperlipidemia Code(s): E78.5 - HYPERLIPIDEMIA, UNSPECIFIED Status: Acute (4) Obstructive sleep apnea on CPAP Code(s): G47.33 - OBSTRUCTIVE SLEEP APNEA (ADULT) (PEDIATRIC); Z99.89 - DEPENDENCE ON OTHER ENABLING MACHINES AND DEVICES Status: Acute (5) COPD (chronic obstructive pulmonary disease) Status: Chronic (6) Coronary artery disease Code(s): I25.10 - ATHSCL HEART DISEASE OF [place] CORONARY ARTERY W/O ANG PCTRS Status: Chronic (7) Anemia Code(s): D64.9 - ANEMIA, UNSPECIFIED Status: Chronic QualifierTitle: Anemia type: iron deficiency (8) HTN (hypertension) Code(s): I10 - ESSENTIAL (PRIMARY) HYPERTENSION Status: Chronic (9) Gastroesophageal reflux disease Code(s): K21.9 - GASTRO-ESOPHAGEAL REFLUX DISEASE WITHOUT ESOPHAGITIS Status: Chronic (10) History of CVA (cerebrovascular accident) Code(s): Z86.73 - PRSNL HX OF TIA (TIA), AND CEREB INFRC W/O RESID DEFICITS Status: Chronic - Plan Plan: 57 yo female who initially presented with nausea, sob, and chest pain admitted for an NSTEMI s/p cath yesterday with no obstructive disease found, but suspected pulmonary hypertension. 1. NSTEMI, suspected- Indeterminent troponins likely 2/2 demand ischemia, elevated CK-MB and cath report showed only minimal vessel disease. Cardiology consulted, appreciate recs. Recommend follow-up with cardiology upon discharge. 2. Suspected pulmonary HTN- Recommend follow-up with pulmonology outpatient. 3. Chronic hypoxic respiratory failure 2/2 severe COPD- Will continue home medical management with increase on chronic steroids and duonebs q4h scheduled. Continue home 02 of 3-5 L. Maintain O2 sats 88-92, currently on 4lNC and typically on 3lNC @ home. Continue CPAP at night. Pt needs to have her family bring her portable O2 to leave the hospital upon discharge. Pt can be discharged today. She maintained good sats ~ 88% with CPAP overnight. 4. Constipation-pt currently on lactulose. Ordered a stool softener IN and senna prn yesterday. Pt had a fleet enema this am and a bowel movement this morning. 5.COPD-see above 6 HTN- continue home meds. BP stable. continue plan of care 7. DURGA- use home CPAP, continue. No changes. 8. Weightloss and night sweats- cta chest abd pelvis showed no evidence of malignancy. Pt shows no signs of infection. Elevated wbc 2/2 steroids. VSS. Possibly 2/2 severity of her lung disease. 9. DVT ppx- cath report showed no evidence of occlusion. PPx lovenox, no need for therapeutic. Dispo: pt can be discharged later today; she will need a family member to bring her portable O2 to the hospital to be discharged home with. <Siobhan Liang - Last Filed: 02/25/18 09:18> Attending Addendum - Attending Addendum Date/Time: 02/25/18 1110 I personally evaluated the patient and discussed the management with Dr. William Loyola. I agree with the History, Examination, Assessment and Plan documented above with any addition or exceptions noted below. Patient doing well and reports feeling well. She has been cleared for discharge with advising to see Pulm outpatient as well as specialist in [place] for her severe pHTN. Abdominal pain improved after bowel movement. O2 sats good on her current O2 requirement. <Ruben Noyola - Last Filed: 02/25/18 11:11>
[2018-02-25] MEDS: Mometasone/Formoterol 120 PUFF INHALER INH SCH (07:25)
[2018-02-25 08:19] VITALS: BP 120/78; TEMP 98.3
[2018-02-25] MEDS: Docusate 100 MG CAP PO SCH (08:19)
[2018-02-25] MEDS: Nebivolol HCl 5 MG TAB PO SCH (08:19)
[2018-02-25] MEDS: Ezetimibe 10 MG TAB PO SCH (08:19)
[2018-02-25] MEDS: Magnesium Oxide 250 MG TAB PO SCH (08:20)
[2018-02-25] MEDS: Polyethylene Glycol 3350 17 GM Packet PO SCH (08:20)
[2018-02-25] MEDS: predniSONE 20 MG TAB PO SCH (08:20)
[2018-02-25] MEDS: Amlodipine 5 MG TAB PO SCH (08:20)
[2018-02-25] MEDS: HYDROcodone/Acetaminophen 10/325 mg Tablet PO PRN (08:24)
[2018-02-25] MEDS ORDERED: Aspirin 325 MG TAB PO SCH (09:00)
[2018-02-26 13:28] LABS: ANA Symphony (Qualitative) Negative (Negative); CCP IgG Antibody 0.5 EliAU/mL (<7 Negative); EliA RAS New Method **** NEW METHOD ****; Rheumatoid Factor IgA Antibody 2.7 IU/mL (<14 Negative); Rheumatoid Factor IgM Antibody Less than 0.5 IU/mL (<3.5 Negative); dsDNA IgG Antibody Less than 0.5 IU/mL (<10 Negative)
== END 2018-02-25 11:46 | disposition home or self-care (01) | DRG 281 ==
LOC: ERS 09:23 → 2NO 13:09
PROVIDERS: ADMIT Student in an Organized Health Care Education/Training Program; ATTEND Student in an Organized Health Care Education/Training Program
PROC: 4A023N8 Measurement of Cardiac Sampling and Pressure, Bilateral, Percutaneous Approach (ICD-10-PCS; principal; 2018-02-23)
PROC: B2111ZZ Fluoroscopy of Multiple Coronary Arteries using Low Osmolar Contrast (ICD-10-PCS; 2018-02-23)
PROC: B2151ZZ Fluoroscopy of Left Heart using Low Osmolar Contrast (ICD-10-PCS; 2018-02-23)
DX: I21.4 Non-ST elevation (NSTEMI) myocardial infarction (principal); N17.9 Acute kidney failure, unspecified; J96.11 Chronic respiratory failure with hypoxia; I27.20 Pulmonary hypertension, unspecified; I25.119 Atherosclerotic heart disease of native coronary artery with unspecified angina pectoris; G47.33 Obstructive sleep apnea (adult) (pediatric); J44.9 Chronic obstructive pulmonary disease, unspecified; I69.944 Monoplegia of lower limb following unspecified cerebrovascular disease affecting left non-dominant side; Z87.891 Personal history of nicotine dependence; Z88.8 Allergy status to other drugs, medicaments and biological substances; I10 Essential (primary) hypertension; D50.9 Iron deficiency anemia, unspecified; K21.9 Gastro-esophageal reflux disease without esophagitis; K59.00 Constipation, unspecified; I24.8 Other forms of acute ischemic heart disease; Z99.81 Dependence on supplemental oxygen; F32.9 Major depressive disorder, single episode, unspecified; E78.00 Pure hypercholesterolemia, unspecified
CPT/HCPCS: 36415; 71045; 71275; 74177; 80048; 80053; 80198; 82553; 83520; 83690; 83880; 84443; 84484; 85025; 85347; 85652; 86038; 86140; 86200; 86225; 87389; 93005; 93010; 93306; 93460; 93561; 93798; 94640; 94664; 94760; 96374; 96375; 99152; 99153; A4216; C1769; J1644; J1650; J1940; J2001; J2250; J2405; J2930; J3010; J7506; J7620

== ENCOUNTER 2018-10-16 08:15 | Emergency (ER) | payer MEDICARE, MEDICAID | END 2018-10-16 10:12 | disposition home or self-care (01) | LOC: ERS 08:15 | DX: R04.0 Epistaxis (principal); K21.9 Gastro-esophageal reflux disease without esophagitis; E78.5 Hyperlipidemia, unspecified; Z86.73 Personal history of transient ischemic attack (TIA), and cerebral infarction without residual deficits; J44.9 Chronic obstructive pulmonary disease, unspecified; I25.10 Atherosclerotic heart disease of native coronary artery without angina pectoris; I10 Essential (primary) hypertension; F32.9 Major depressive disorder, single episode, unspecified; Z87.891 Personal history of nicotine dependence; Z79.899 Other long term (current) drug therapy; Z79.82 Long term (current) use of aspirin | CPT/HCPCS: 93005; 99283 ==

== ENCOUNTER 2018-11-05 14:04 | Outpatient (CLI) | payer MEDICARE, OTHER | END 2018-11-05 14:05 | disposition home or self-care (01) | LOC: BICMAMMO 14:04 | PROVIDERS: ATTEND Internal Medicine Medical Oncology | DX: Z12.31 Encounter for screening mammogram for malignant neoplasm of breast (principal); Z80.3 Family history of malignant neoplasm of breast | CPT/HCPCS: 77063; 77067 ==

== ENCOUNTER 2019-11-06 08:56 | Outpatient (CLI) | payer MEDICARE, MEDICAID ==
--- NOTE | 2019-11-06 09:49 | MMO ---
Bilateral MAMMO Bilat Screen [facility]. CLINICAL HISTORY: Patient is 58 years old and is seen for screening. The patient has the following family history of breast cancer: maternal grandmother, at age 63, malignant (generic). The patient has no personal history of cancer. VIEWS: The views performed were: bilateral craniocaudal with tomosynthesis and bilateral mediolateral oblique with tomosynthesis. FILMS COMPARED: The present examination has been compared to prior imaging studies performed at [facility] on 10/26/2015, 10/27/2016, 11/03/2017 and 11/05/2018. This study has been interpreted with the assistance of computer-aided detection. MAMMOGRAM FINDINGS: There are scattered fibroglandular densities. There are no suspicious masses, suspicious calcifications, or new areas of architectural distortion. IMPRESSION: THERE IS NO MAMMOGRAPHIC EVIDENCE OF MALIGNANCY. A ROUTINE FOLLOW-UP MAMMOGRAM IN 1 YEAR IS RECOMMENDED. THE RESULTS OF THIS EXAM WERE SENT TO THE PATIENT. ACR BI-RADS Category 1 - Negative MAMMOGRAPHY NOTE: 1. A negative mammogram report should not delay a biopsy if a dominant of clinically suspicious mass is present. 2. Approximately 10% to 15% of breast cancers are not detected by mammography. 3. Adenosis and dense breasts may obscure an underlying neoplasm. Reported by: STEVAN TRENT MD Electonically Signed: [id number]
== END 2019-11-06 08:57 | disposition home or self-care (01) ==
LOC: BICMAMMO 08:56
PROVIDERS: ATTEND Internal Medicine Medical Oncology
DX: Z12.31 Encounter for screening mammogram for malignant neoplasm of breast (principal); Z80.3 Family history of malignant neoplasm of breast
CPT/HCPCS: 77063; 77067

== ENCOUNTER 2020-11-09 08:49 | Outpatient (CLI) | payer MEDICARE, MEDICAID ==
--- NOTE | 2020-11-09 09:29 | MMO ---
Bilateral MAMMO Bilat Screen [facility]. CLINICAL HISTORY: Patient is 59 years old and is seen for screening. The patient has the following family history of breast cancer: maternal grandmother, at age 63, malignant (generic). The patient has no personal history of cancer. VIEWS: The views performed were: bilateral craniocaudal with tomosynthesis and bilateral mediolateral oblique with tomosynthesis. FILMS COMPARED: The present examination has been compared to prior imaging studies performed at [facility] on 10/27/2016, 11/03/2017, 11/05/2018 and 11/06/2019. This study has been interpreted with the assistance of computer-aided detection. MAMMOGRAM FINDINGS: There are scattered fibroglandular densities. There are no suspicious masses, suspicious calcifications, or new areas of architectural distortion. IMPRESSION: THERE IS NO MAMMOGRAPHIC EVIDENCE OF MALIGNANCY. A ROUTINE FOLLOW-UP MAMMOGRAM IN 1 YEAR IS RECOMMENDED. THE RESULTS OF THIS EXAM WERE SENT TO THE PATIENT. ACR BI-RADS Category 1 - Negative MAMMOGRAPHY NOTE: 1. A negative mammogram report should not delay a biopsy if a dominant of clinically suspicious mass is present. 2. Approximately 10% to 15% of breast cancers are not detected by mammography. 3. Adenosis and dense breasts may obscure an underlying neoplasm. Reported by: SINAI BROWN MD Electonically Signed: [id number]
== END 2020-11-09 08:50 | disposition home or self-care (01) ==
LOC: BICMAMMO 08:49
PROVIDERS: ATTEND Student in an Organized Health Care Education/Training Program
DX: Z12.31 Encounter for screening mammogram for malignant neoplasm of breast (principal); Z80.3 Family history of malignant neoplasm of breast
CPT/HCPCS: 77063; 77067

== ENCOUNTER 2021-01-12 10:00 | Observation (INO) | payer MEDICARE, OTHER ==
[2021-01-12 10:32] LABS: Actual Bicarbonate (HCO3v) 26 mEq/L (22-28); Analyzer IN Cardio ER; Base Excess 0.9 mEq/L (-2.0 to +3.0); Calcium, Ionized (venous) 1.14 mmol/L (1.16-1.32); Chloride (VBG) 106 mmol/L (98-106); Hemoglobin (Hb) 12.9 g/dL (11.7-16.0); Potassium (VBG) 3.36 mmol/L (3.70-5.30); Sodium 143.8 mmol/L (133-146); pH (venous) 7.38 (7.32-7.43)
--- NOTE | 2021-01-12 10:45 | RAD ---
EXAM: Chest one view: HISTORY: COPD exacerbation COMPARISON: None FINDINGS: Mild stable increased bronchovascular markings Heart size: Within normal limits. Lungs: Clear of acute process. No evidence for confluent lobar pneumonia, significant pleural effusion, acute edema, or pneumothorax , or other significant acute process. IMPRESSION: No significant acute intrathoracic disease.
[2021-01-12] MEDS ORDERED: Nitroglycerin 2% Ointment 1 INCH/1 GM Packet ONE (10:56)
[2021-01-12] MEDS ORDERED: cefTRIAXone\\ROCEPHIN 2 GM VIAL ONE (10:56)
[2021-01-12] MEDS ORDERED: Azithromycin 500 MG VIAL ONE (10:56)
[2021-01-12 11:01] LABS: #Eosinphils 0.1 thou/uL (0.0-0.7); #Lymphocytes 3.1 thou/uL (1.20-3.40); #Monocytes 0.6 thou/uL (0.11-0.59); #Neutrophils 6.5 thou/uL (1.40-6.50); %Basophils 0.5 % (0.0-1.0); %Eosinophils 0.8 % (0.0-10.0); %Lymphocytes 30.5 % (21.0-51.0); %Monocytes 5.5 % (0.0-10.0); %Neutrophils 62.8 % (42.0-75.0); Hemoglobin 12.6 g/dL (12.0-16.0); Mean Corpuscular HGB CONC 33.5 g/dL (32.0-36.0); Mean Corpuscular Hemoglobin 21.7 pg (27.0-31.0); Mean Corpuscular Volume 64.8 fL (78.0-98.0); Mean Platelet Volume 7.2 fL (7.4-10.4); Platelet Count 181 thou/uL (130-400); RBC Distribution Width 15.7 % (11.5-14.5); White Blood Cell (WBC) Count 10.3 thou/uL (4.8-10.8)
[2021-01-12 11:04] LABS: ALT (SGPT) 8 U/L (8-55); AST (SGOT) 12 U/L (5-34); Albumin 4.5 g/dL (3.5-5.0); Alkaline Phosphatase 67 U/L (40-110); Anion Gap 15 mmol/L (10-20); BUN (Urea Nitrogen) 9 mg/dL (9.8-20.1); Bilirubin, Total 0.4 mg/dL (0.2-1.2); Calc. Creatinine Clearance 0 mL/min (70-130); Calcium 9.4 mg/dL (7.8-10.44); Carbon Dioxide 27 mmol/L (22-29); Chloride 106 mmol/L (98-107); Globulin 2.9 g/dL (2.4-3.5); Glucose 108 mg/dL (70-105); Potassium 3.4 mmol/L (3.5-5.1); Protein, Total 7.4 g/dL (6.0-8.3); Sodium 145 mmol/L (136-145)
[2021-01-12 11:46] LABS: SARS-CoV-2 NAA Rapid Test Not Detected (NotDetected)
[2021-01-12 11:48] LABS: Bilirubin Small (Negative); Blood, Urine Negative (Negative); Glucose, Urine (Dipstick) Negative (Negative); Ketone, Urine Trace mg/dL (Negative); Leukocyte Negative (Negative); Nitrite Negative (Negative); Protein, Urine (Dipstick) 100 mg/dL (Neg-Trace); Specific Gravity, Urine 1.025 (1.005-1.030); Urobilinogen 0.2 mg/dL (Less than 2)
[2021-01-12 11:51] LABS: Reflex for Review?? NO
[2021-01-12 11:52] LABS: Clarity Clear (Clear)
[2021-01-12 12:01] LABS: Bite Cells SLIGHT = 2-5 cells (100X) (0-1/hpf); Hypochromia MODERATE=16-30 cells (100X) (0-5/hpf); MDiff Complete? YES; Microcytosis MODERATE=15-30 cells (100X) (0-5/hpf); Ovalocytes MODERATE= 6-15 cells (100X) (0-1/hpf); Platelet Morphology Comment Appears Adequate; Polychromasia SLIGHT = 2-3 cells (100X) (0-2/hpf)
[2021-01-12 12:01] LABS: RBC/HPF 0-3 HPF (0-3); Transitional Epithelial 0-3 HPF (None Seen); WBC/HPF 0-3 HPF (0-3)
[2021-01-12] MEDS ORDERED: Azithromycin 250 MG TAB ONE (12:01)
[2021-01-12 12:02] LABS: Bacteria/HPF Rare-Few HPF (None Seen)
[2021-01-12] MEDS ORDERED: Iopamidol-370 76% 500 ML 1 ML ONE (12:16)
--- NOTE | 2021-01-12 13:18 | CT ---
CT PULMONARY ANGIOGRAM WITH IV CONTRAST AND 3D POSTPROCESSING: Date: 01/12/2021 HISTORY: Elevated D-Dimer. Dyspnea. COMPARISON: 02/21/2018. FINDINGS: There is good contrast opacification with a small filling defect in a subsegmental branch of the righ t lower lobe pulmonary artery in the posteromedial aspect of the right lung base. No pleural or peric ardial effusions are seen. There are vascular calcifications without evidence of aneurysm or dissecti on of the thoracic aorta. There are emphysematous changes in the lung leyva. Calcified granuloma in the left lower lobe is aga in seen. There is a tiny, 3.0 mm, peripheral nodule in the right upper lobe, not definitely seen on t he previous study. There are degenerative changes of the spine. IMPRESSION: 1. Findings are consistent with pulmonary embolism. 2. 3.0 mm right upper lobe lung nodule. This should be followed up with CT scan in 12 months. Discussed over the telephone with ER physician, Dr. Liborio Mcleod, at 1311 hours. CODE CR. POS: MZHerbert
[2021-01-12] MEDS ORDERED: Enoxaparin Sodium 100 MG/ML SYRINGE ONE (13:35)
[2021-01-12 14:27] LABS: Lactic Acid 1.4 mmol/L (0.5-2.2)
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
[2021-01-12] MEDS ORDERED: HYDROcodone/Acetaminophen 10/325 mg Tablet ONE (15:13)
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
[2021-01-12] MEDS ORDERED: Acetaminophen 325 MG TAB PO PRN (16:03)
[2021-01-12] MEDS ORDERED: Ondansetron ODT 4 MG TAB PO PRN (16:03)
[2021-01-12] MEDS ORDERED: Ondansetron PF 4 MG/2 ML Vial IVP PRN (16:03)
[2021-01-12] MEDS ORDERED: Melatonin 3 MG TAB PO PRN (18:38)
[2021-01-12] MEDS ORDERED: Nebivolol HCl 5 MG TAB PO SCH (19:00)
[2021-01-12 21:43] VITALS: BMI 31.0
[2021-01-12] MEDS: Ipratropium Bromide 2.5 ml Neb NEB SCH (22:12)
[2021-01-12] MEDS: Atorvastatin Calcium 40 MG TAB PO SCH (22:46)
[2021-01-12] MEDS: Ezetimibe 10 MG TAB PO SCH (22:47)
[2021-01-12] MEDS: rOPINIRole HCl 0.5 MG TAB PO SCH (22:47)
[2021-01-12] MEDS: TREPROSTINIL DIOLAMINE PO SCH (22:48)
[2021-01-13] MEDS: Ipratropium Bromide 2.5 ml Neb NEB SCH ×4 (00:50→18:44)
[2021-01-13] MEDS: HYDROcodone/Acetaminophen 10/325 mg Tablet PO PRN ×2 (05:39→14:34)
[2021-01-13] MEDS: TREPROSTINIL DIOLAMINE PO SCH ×3 (05:40→20:33)
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
[2021-01-13] MEDS: Mometasone 200 MCG/Formoterol 5 MCG 120 PUFF INHALER INH SCH ×2 (07:28→18:52)
[2021-01-13] MEDS ORDERED: rOPINIRole HCl 0.5 MG TAB PO SCH (09:00)
[2021-01-13] MEDS ORDERED: Ezetimibe 10 MG TAB PO SCH (09:00)
[2021-01-13] MEDS ORDERED: Atorvastatin Calcium 40 MG TAB PO SCH (09:00)
[2021-01-13] MEDS ORDERED: Nebivolol HCl 5 MG TAB PO SCH (09:00)
[2021-01-13] MEDS: Aspirin 81 mg Enteric Coated Tablet PO SCH (10:26)
[2021-01-13] MEDS: Furosemide 40 MG TAB PO SCH (10:26)
[2021-01-13] MEDS: Apixaban 5 MG TAB PO SCH ×2 (10:26→20:32)
[2021-01-13] MEDS: Nebivolol HCl 5 MG TAB PO SCH (10:27)
[2021-01-13] MEDS: Potassium Chloride 10 MEQ TAB PO SCH (10:27)
[2021-01-13] MEDS: Tadalafil [Tadalafil] 20 MG Tablet PO SCH (10:30)
[2021-01-13] MEDS: AMBRISENTAN 5 MG PO SCH (10:30)
[2021-01-13] MEDS: rOPINIRole HCl 0.5 MG TAB PO SCH (20:33)
[2021-01-13] MEDS: Atorvastatin Calcium 40 MG TAB PO SCH (20:33)
[2021-01-13] MEDS: Ezetimibe 10 MG TAB PO SCH (20:33)
[2021-01-14] MEDS: Ipratropium Bromide 2.5 ml Neb NEB SCH ×3 (00:29→13:37)
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
[2021-01-14] MEDS: TREPROSTINIL DIOLAMINE PO SCH (05:58)
[2021-01-14] MEDS: HYDROcodone/Acetaminophen 10/325 mg Tablet PO PRN (05:58)
[2021-01-14] MEDS ORDERED: Potassium Chloride 20 MEQ TAB PO SCH (07:30)
[2021-01-14] MEDS: Mometasone 200 MCG/Formoterol 5 MCG 120 PUFF INHALER INH SCH (07:49)
[2021-01-14] MEDS: Apixaban 5 MG TAB PO SCH (09:40)
[2021-01-14] MEDS: Aspirin 81 mg Enteric Coated Tablet PO SCH (09:41)
[2021-01-14] MEDS: Furosemide 40 MG TAB PO SCH (09:41)
[2021-01-14] MEDS: Potassium Chloride 10 MEQ TAB PO SCH (09:41)
[2021-01-14] MEDS: Nebivolol HCl 5 MG TAB PO SCH (09:42)
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
[2021-01-14] MEDS: Tadalafil [Tadalafil] 20 MG Tablet PO SCH (12:39)
[2021-01-14] MEDS: AMBRISENTAN 5 MG PO SCH (12:39)
[2021-01-14 12:45] VITALS: BP 135/82; TEMP 99
--- NOTE | 2021-01-16 15:53 | EKG ---
Test Reason : Blood Pressure : / mmHG Vent. Rate : 127 BPM Atrial Rate : 127 BPM P-R Int : 142 ms QRS Dur : 078 ms QT Int : 310 ms P-R-T Axes : 071 052 063 degrees QTc Int : 450 ms Sinus tachycardia Possible Left atrial enlargement Nonspecific ST abnormality Abnormal ECG Confirmed by SHARITA JOHNSON ([id number]), marketing editor VIKASH DAVILA ([id number]) on 01/16/2021 3:53:14 PM Referred By: Confirmed By:SHARITA JOHNSON
[2021-01-20] MEDS ORDERED: Apixaban 5 MG TAB PO SCH (09:00)
== END 2021-01-14 14:26 | disposition home or self-care (01) ==
LOC: ERS 10:00 → ERHOLD 14:46 → 2NO 21:11
PROVIDERS: ADMIT Emergency Medicine; ATTEND Emergency Medicine
DX: J96.21 Acute and chronic respiratory failure with hypoxia (principal); I26.93 Single subsegmental thrombotic pulmonary embolism without acute cor pulmonale; I27.20 Pulmonary hypertension, unspecified; J44.1 Chronic obstructive pulmonary disease with (acute) exacerbation; R91.1 Solitary pulmonary nodule; E78.5 Hyperlipidemia, unspecified; G47.33 Obstructive sleep apnea (adult) (pediatric); K21.9 Gastro-esophageal reflux disease without esophagitis; I11.0 Hypertensive heart disease with heart failure; I50.9 Heart failure, unspecified; M19.90 Unspecified osteoarthritis, unspecified site; I69.354 Hemiplegia and hemiparesis following cerebral infarction affecting left non-dominant side; Z87.891 Personal history of nicotine dependence; Z79.82 Long term (current) use of aspirin; Z79.899 Other long term (current) drug therapy; Z88.8 Allergy status to other drugs, medicaments and biological substances; Z99.81 Dependence on supplemental oxygen; Z20.822 Contact with and (suspected) exposure to COVID-19
CPT/HCPCS: 0240U; 71045; 71275; 80053; 82805; 83605; 83880; 84484; 85025; 85379; 87040; 93005; 94640 ×5; 96365; 96372; 99285; 36415; 81003; 81015; G0378; J0456; J0696; J1650; Q9967

== ENCOUNTER 2021-09-09 13:28 | Inpatient (IN) | payer MEDICARE, OTHER ==
[2021-09-09 15:08] LABS: #Lymphocytes 1.3 thou/uL (1.20-3.40); #Monocytes 0.2 thou/uL (0.11-0.59); #Neutrophils 6.1 thou/uL (1.40-6.50); %Basophils 0.4 % (0.0-1.0); %Eosinophils 0.1 % (0.0-10.0); %Lymphocytes 16.6 % (21.0-51.0); %Monocytes 2.7 % (0.0-10.0); %Neutrophils 80.2 % (42.0-75.0); Hemoglobin 10.8 g/dL (12.0-16.0); Mean Corpuscular HGB CONC 32.1 g/dL (32.0-36.0); Mean Corpuscular Volume 65.4 fL (78.0-98.0); Mean Platelet Volume 6.1 fL (7.4-10.4); Platelet Count 227 thou/uL (130-400); RBC Distribution Width 16.7 % (11.5-14.5); Red Blood Cell (RBC) Count 5.16 mill/uL (4.20-5.40); White Blood Cell (WBC) Count 7.6 thou/uL (4.8-10.8)
[2021-09-09 15:27] LABS: Anisocytosis SLIGHT = 6-15 cells (100X) (0-5/hpf); Burr Cells SLIGHT = 2-5 cells (100X) (0-1/hpf); Hypochromia SLIGHT = 6-15 cells (100X) (0-5/hpf); MDiff Complete? YES; Microcytosis SLIGHT = 6-15 cells (100X) (0-5/hpf); Ovalocytes SLIGHT = 2-5 cells (100X) (0-1/hpf); Platelet Morphology Comment Appears Adequate; Polychromasia SLIGHT = 2-3 cells (100X) (0-2/hpf); Tear Drops SLIGHT = 2-5 cells (100X) (0-1/hpf)
[2021-09-09 15:54] LABS: CKMB 1.9 ng/mL (0-6.6)
[2021-09-09 16:06] LABS: ALT (SGPT) 7 U/L (8-55); AST (SGOT) 12 U/L (5-34); Alkaline Phosphatase 53 U/L (40-110); Anion Gap 12 mmol/L (10-20); BUN (Urea Nitrogen) 14 mg/dL (9.8-20.1); Bilirubin, Total 0.4 mg/dL (0.2-1.2); Calc. Creatinine Clearance 0 mL/min (70-130); Calcium 8.9 mg/dL (7.8-10.44); Carbon Dioxide 29 mmol/L (22-29); Chloride 101 mmol/L (98-107); Globulin 2.4 g/dL (2.4-3.5); Glucose 96 mg/dL (70-105); Potassium 3.4 mmol/L (3.5-5.1); Protein, Total 6.4 g/dL (6.0-8.3); Sodium 139 mmol/L (136-145)
[2021-09-09] MEDS ORDERED: Ondansetron ODT 4 MG TAB PO PRN (17:07)
[2021-09-09] MEDS ORDERED: Acetaminophen 325 MG TAB PO PRN (17:07)
[2021-09-09] MEDS ORDERED: Ondansetron PF 4 MG/2 ML Vial IVP PRN (17:07)
[2021-09-09] MEDS ORDERED: Acetaminophen 650 MG Suppository PR PRN (17:07)
[2021-09-09] MEDS ORDERED: Albuterol Sulfate 2.5 mg/3 ml Neb NEB PRN (17:16)
[2021-09-09] MEDS ORDERED: Lactated Ringer's 1,000 ML IV SCH (17:30)
[2021-09-09 18:11] LABS: Troponin I 0.116 ng/mL (< 0.028)
[2021-09-09] MEDS ORDERED: Potassium Chloride 20 MEQ in Premix Bag 1 BAG IVPB SCH (18:30)
[2021-09-09] MEDS: Ipratropium Bromide 2.5 ml Neb NEB SCH (19:13)
[2021-09-09] MEDS: Apixaban 5 MG TAB PO SCH (21:21)
[2021-09-09] MEDS: rOPINIRole HCl 1 MG TAB PO SCH (21:21)
[2021-09-09 21:32] LABS: Troponin I 0.106 ng/mL (< 0.028)
[2021-09-10] MEDS: Ipratropium Bromide 2.5 ml Neb NEB SCH ×2 (01:25→08:15)
[2021-09-10] MEDS: Mometasone 200 MCG/Formoterol 5 MCG 120 PUFF INHALER INH SCH ×3 (01:38→18:10)
[2021-09-10 05:37] LABS: Anion Gap 15 mmol/L (10-20); BUN (Urea Nitrogen) 16 mg/dL (9.8-20.1); Calc. Creatinine Clearance 99 mL/min (70-130); Calcium 9.1 mg/dL (7.8-10.44); Carbon Dioxide 28 mmol/L (22-29); Chloride 103 mmol/L (98-107); Glucose 102 mg/dL (70-105); Potassium 3.8 mmol/L (3.5-5.1); Sodium 142 mmol/L (136-145)
[2021-09-10 06:03] LABS: Hemoglobin 9.8 g/dL (12.0-16.0); Mean Corpuscular HGB CONC 32.3 g/dL (32.0-36.0); Mean Corpuscular Hemoglobin 20.7 pg (27.0-31.0); Mean Corpuscular Volume 64.2 fL (78.0-98.0); Mean Platelet Volume 10.1 fL (7.4-10.4); Platelet Count 222 thou/uL (130-400); RBC Distribution Width 16.6 % (11.5-14.5); Red Blood Cell (RBC) Count 4.72 mill/uL (4.20-5.40); White Blood Cell (WBC) Count 6.5 thou/uL (4.8-10.8)
[2021-09-10 06:04] LABS: Anisocytosis SLIGHT = 6-15 cells (100X) (0-5/hpf); Band 2 % (5-11); Burr Cells SLIGHT = 2-5 cells (100X) (0-1/hpf); Hypochromia SLIGHT = 6-15 cells (100X) (0-5/hpf); Lymphocytes 36 % (21-51); MDiff Complete? YES; Monocytes 6 % (0-10); Neutrophil 55 % (42-75); Ovalocytes SLIGHT = 2-5 cells (100X) (0-1/hpf); Platelet Morphology Comment Appears Adequate; Poikilocytosis SLIGHT = 6-15 cells (100X) (0-5/hpf); Reactive Lymphocytes 1 % (0-10); Schistocytes SLIGHT = 2-5 cells (100X) (0-1/hpf)
[2021-09-10] MEDS: TADALAFIL 20 MG PO SCH (07:45)
[2021-09-10] MEDS: AMBRISENTAN 5MG TAB PO SCH (07:45)
[2021-09-10] MEDS: Fluticasone Propionate Nasal Spray 16 gm Bottle NASAL SCH (10:05)
[2021-09-10] MEDS: Atorvastatin Calcium 40 MG TAB PO SCH (10:07)
[2021-09-10] MEDS: Ezetimibe 10 MG TAB PO SCH (10:07)
[2021-09-10] MEDS: Apixaban 5 MG TAB PO SCH ×2 (10:07→21:40)
[2021-09-10] MEDS: Aspirin 81 mg Enteric Coated Tablet PO SCH (10:07)
[2021-09-10] MEDS: Nebivolol HCl 5 MG TAB PO SCH (10:08)
[2021-09-10] MEDS: predniSONE 20 MG TAB PO SCH (10:08)
[2021-09-10] MEDS: Furosemide 40 MG TAB PO SCH (10:08)
[2021-09-10] MEDS: Cholecalciferol 1,000 UNITS (25 MCG) TAB PO SCH (10:08)
[2021-09-10] MEDS: Potassium Chloride 10 MEQ TAB PO SCH (10:08)
[2021-09-10] MEDS: HYDROcodone/Acetaminophen 10/325 mg Tablet PO PRN ×2 (10:15→21:41)
[2021-09-10 12:30] LABS: SARS-CoV-2 PCR by NAA Not Detected (NotDetected)
[2021-09-10] MEDS: TREPROSTINIL PO SCH ×3 (14:13→21:41)
[2021-09-10 14:58] VITALS: BMI 28.9
[2021-09-10] MEDS: rOPINIRole HCl 1 MG TAB PO SCH (21:40)
[2021-09-11] MEDS: Mometasone 200 MCG/Formoterol 5 MCG 120 PUFF INHALER INH SCH ×2 (07:58→18:49)
[2021-09-11] MEDS: AMBRISENTAN 5MG TAB PO SCH (08:00)
[2021-09-11] MEDS: TREPROSTINIL PO SCH ×3 (08:00→20:31)
[2021-09-11] MEDS: TADALAFIL 20 MG PO SCH (09:42)
[2021-09-11] MEDS: Fluticasone Propionate Nasal Spray 16 gm Bottle NASAL SCH (09:42)
[2021-09-11] MEDS: Potassium Chloride 10 MEQ TAB PO SCH (09:43)
[2021-09-11] MEDS: Atorvastatin Calcium 40 MG TAB PO SCH (09:43)
[2021-09-11] MEDS: Ezetimibe 10 MG TAB PO SCH (09:43)
[2021-09-11] MEDS: Aspirin 81 mg Enteric Coated Tablet PO SCH (09:43)
[2021-09-11] MEDS: Nebivolol HCl 5 MG TAB PO SCH (09:43)
[2021-09-11] MEDS: Apixaban 5 MG TAB PO SCH ×2 (09:43→20:30)
[2021-09-11] MEDS: predniSONE 20 MG TAB PO SCH (09:43)
[2021-09-11] MEDS: Cholecalciferol 1,000 UNITS (25 MCG) TAB PO SCH (09:44)
[2021-09-11] MEDS: Furosemide 40 MG TAB PO SCH (09:44)
[2021-09-11] MEDS: HYDROcodone/Acetaminophen 10/325 mg Tablet PO PRN ×2 (09:49→20:34)
[2021-09-11] MEDS: Cepastat Lozenges 1 LOZ PO PRN ×2 (12:41→20:34)
[2021-09-11] MEDS: rOPINIRole HCl 1 MG TAB PO SCH (20:30)
[2021-09-12] MEDS: Mometasone 200 MCG/Formoterol 5 MCG 120 PUFF INHALER INH SCH ×2 (07:29→18:40)
[2021-09-12] MEDS: AMBRISENTAN 5MG TAB PO SCH (08:48)
[2021-09-12] MEDS: TADALAFIL 20 MG PO SCH (08:48)
[2021-09-12] MEDS: Aspirin 81 mg Enteric Coated Tablet PO SCH (08:49)
[2021-09-12] MEDS: predniSONE 20 MG TAB PO SCH (08:49)
[2021-09-12] MEDS: Apixaban 5 MG TAB PO SCH ×2 (08:49→20:27)
[2021-09-12] MEDS: Cholecalciferol 1,000 UNITS (25 MCG) TAB PO SCH (08:49)
[2021-09-12] MEDS: Ezetimibe 10 MG TAB PO SCH (08:49)
[2021-09-12] MEDS: TREPROSTINIL PO SCH ×3 (08:49→20:27)
[2021-09-12] MEDS: Atorvastatin Calcium 40 MG TAB PO SCH (08:49)
[2021-09-12] MEDS: Nebivolol HCl 5 MG TAB PO SCH (08:49)
[2021-09-12] MEDS: Potassium Chloride 10 MEQ TAB PO SCH (08:50)
[2021-09-12] MEDS: Furosemide 40 MG TAB PO SCH (08:50)
[2021-09-12] MEDS ORDERED: FLU VACC QS2021-22(6MOS UP)/PF 60 MCG/0.5 ML SYRINGE IM ONE (09:00)
[2021-09-12] MEDS: Fluticasone Propionate Nasal Spray 16 gm Bottle NASAL SCH (09:01)
[2021-09-12] MEDS: HYDROcodone/Acetaminophen 10/325 mg Tablet PO PRN ×3 (09:02→20:27)
[2021-09-12] MEDS: rOPINIRole HCl 1 MG TAB PO SCH (20:27)
[2021-09-13] MEDS: Mometasone 200 MCG/Formoterol 5 MCG 120 PUFF INHALER INH SCH (07:51)
[2021-09-13] MEDS: TREPROSTINIL PO SCH (10:09)
[2021-09-13] MEDS: Fluticasone Propionate Nasal Spray 16 gm Bottle NASAL SCH (10:11)
[2021-09-13] MEDS: TADALAFIL 20 MG PO SCH (10:11)
[2021-09-13] MEDS: AMBRISENTAN 5MG TAB PO SCH (10:11)
[2021-09-13] MEDS: Apixaban 5 MG TAB PO SCH (10:12)
[2021-09-13] MEDS: Aspirin 81 mg Enteric Coated Tablet PO SCH (10:12)
[2021-09-13] MEDS: Ezetimibe 10 MG TAB PO SCH (10:12)
[2021-09-13] MEDS: predniSONE 20 MG TAB PO SCH (10:12)
[2021-09-13] MEDS: Atorvastatin Calcium 40 MG TAB PO SCH (10:13)
[2021-09-13] MEDS: Cholecalciferol 1,000 UNITS (25 MCG) TAB PO SCH (10:13)
[2021-09-13] MEDS: Potassium Chloride 10 MEQ TAB PO SCH (10:13)
[2021-09-13] MEDS: Furosemide 40 MG TAB PO SCH (10:13)
[2021-09-13] MEDS: Nebivolol HCl 5 MG TAB PO SCH (10:13)
[2021-09-13] MEDS: HYDROcodone/Acetaminophen 10/325 mg Tablet PO PRN (10:16)
[2021-09-13 12:09] VITALS: BP 108/57; TEMP 98.7
== END 2021-09-13 13:20 | disposition home or self-care (01) | DRG 189 ==
LOC: ERS 13:28 → 2NO 16:40 → OBSVTOIN 09-10 14:43
PROVIDERS: ADMIT Family Medicine; ATTEND Family Medicine
DX: J96.21 Acute and chronic respiratory failure with hypoxia (principal); J44.1 Chronic obstructive pulmonary disease with (acute) exacerbation; I69.354 Hemiplegia and hemiparesis following cerebral infarction affecting left non-dominant side; I24.8 Other forms of acute ischemic heart disease; I50.32 Chronic diastolic (congestive) heart failure; I27.20 Pulmonary hypertension, unspecified; E78.5 Hyperlipidemia, unspecified; K21.9 Gastro-esophageal reflux disease without esophagitis; G25.81 Restless legs syndrome; I11.0 Hypertensive heart disease with heart failure; R77.8 Other specified abnormalities of plasma proteins; E87.6 Hypokalemia; D50.9 Iron deficiency anemia, unspecified; D56.3 Thalassemia minor; G89.29 Other chronic pain; E78.00 Pure hypercholesterolemia, unspecified; I25.10 Atherosclerotic heart disease of native coronary artery without angina pectoris; F32.A Depression, unspecified; G47.33 Obstructive sleep apnea (adult) (pediatric); M19.90 Unspecified osteoarthritis, unspecified site; Z20.822 Contact with and (suspected) exposure to COVID-19; Z90.710 Acquired absence of both cervix and uterus; Z90.49 Acquired absence of other specified parts of digestive tract; Z86.711 Personal history of pulmonary embolism; Z79.82 Long term (current) use of aspirin; Z79.51 Long term (current) use of inhaled steroids; Z79.899 Other long term (current) drug therapy; Z98.51 Tubal ligation status; I25.2 Old myocardial infarction
CPT/HCPCS: 36415; 71045; 80048; 80053; 82553; 83880; 84484; 85025; 87040; 93005; 93010; 94640; 96374; 99285; G0378; J3480; J7120; J7512; J7620; U0003; U0005

== ENCOUNTER 2023-03-04 21:21 | Emergency (ER) | payer MEDICAID, MEDICARE ==
[2023-03-04] MEDS ORDERED: Ketorolac Tromethamine 30 MG/ML VIAL ONE (22:02)
[2023-03-04] MEDS ORDERED: Morphine 4 MG/ML VIAL ONE (22:02)
[2023-03-05] MEDS ORDERED: Dexamethasone 4 mg/ml Vial ONE (00:02)
== END 2023-03-05 00:52 | disposition short-term general hospital (02) ==
LOC: ERS 21:21
DX: T20.27XA Burn of second degree of neck, initial encounter (principal); J68.9 Unspecified respiratory condition due to chemicals, gases, fumes and vapors; K21.9 Gastro-esophageal reflux disease without esophagitis; E78.5 Hyperlipidemia, unspecified; J44.9 Chronic obstructive pulmonary disease, unspecified; I10 Essential (primary) hypertension; Z87.891 Personal history of nicotine dependence; Z79.82 Long term (current) use of aspirin
CPT/HCPCS: 71045; 94640; 96374; 96375; G0390; J1100; J1885; J2270

== ENCOUNTER 2023-12-18 20:19 | Inpatient (IN) | payer OTHER ==
[~2023-12-18 20:19] MED LIST: Iopamidol-370 76% 500 ML MDV (1 ML CHARGE) ONE
[2023-12-18 21:37] LABS: #Basophils 0.1 thou/uL (0.0-0.2); #Monocytes 0.5 thou/uL (0.11-0.59); #Neutrophils 7.9 thou/uL (1.40-6.50); %Basophils 0.6 % (0.0-1.0); %Lymphocytes 15.3 % (21.0-51.0); %Monocytes 4.7 % (0.0-10.0); %Neutrophils 79.2 % (42.0-75.0); Hematocrit 27.1 % (36.0-47.0); Hemoglobin 8.2 g/dL (12.0-16.0); Mean Corpuscular HGB CONC 30.3 g/dL (32.0-36.0); Mean Corpuscular Hemoglobin 19.3 pg (27.0-31.0); Mean Corpuscular Volume 63.9 fl (78.0-98.0); Mean Platelet Volume 10.3 fL (7.4-10.4); Platelet Count 318 10x3/uL (130-400); RBC Distribution Width 18.2 % (11.5-14.5); Red Blood Cell (RBC) Count 4.24 mill/uL (4.20-5.40)
[2023-12-18] MEDS ORDERED: Famotidine/PF 20 mg/2ml Vial ONE (21:51)
[2023-12-18 22:05] LABS: ALT (SGPT) 14 U/L (8-55); AST (SGOT) 39 U/L (5-34); Albumin 4.4 g/dL (3.4-4.8); Alkaline Phosphatase 51 U/L (40-110); Anion Gap 12 mmol/L (10-20); BUN (Urea Nitrogen) 15 mg/dL (9.8-20.1); Bilirubin, Total 0.3 mg/dL (0.2-1.2); Calc. Creatinine Clearance 0 mL/min (70-130); Calcium 9.6 mg/dL (7.8-10.44); Carbon Dioxide 31 mmol/L (23-31); Chloride 96 mmol/L (98-107); Estimated GFR 91; Globulin 3.1 g/dL (2.4-3.5); Glucose 115 mg/dL (80-115); Lipase 26 U/L (8-78); Potassium 3.4 mmol/L (3.5-5.1); Protein, Total 7.5 g/dL (5.8-8.1); Sodium 136 mmol/L (136-145)
[2023-12-18] MEDS ORDERED: Ondansetron PF 4 MG/2 ML Vial ONE (22:07)
[2023-12-18 22:09] LABS: Troponin I 0.045 ng/mL (< 0.028)
[2023-12-18] MEDS ORDERED: Metoclopramide HCl 10 MG (2 mL) VIAL ONE (22:10)
[2023-12-18 22:30] LABS: Anisocytosis SLIGHT = 6-15 cells HPF (0-5); CellaVision Operator ID lab.sh2; Hypochromia MODERATE=16-30 cells HPF (0-5); Macrocytosis SLIGHT = 6-15 cells HPF (0-5); Microcytosis MODERATE=15-30 cells HPF (0-5); Ovalocytes MODERATE= 6-15 cells HPF (0-1); Platelet Adequacy Comment Platelets Normal; Polychromasia SLIGHT = 2-3 cells HPF (0-2)
[2023-12-18] MEDS ORDERED: NS 0.9% w/ 20 MEQ KCL 1,000 ML ONE (22:40)
[2023-12-18 23:59] LABS: SARS-CoV-2 NAA Rapid Test Not Detected (NotDetected)
[2023-12-19] MEDS ORDERED: Metoclopramide HCl 10 MG (2 mL) VIAL IVP PRN (00:23)
[2023-12-19] MEDS ORDERED: Ondansetron ODT 4 MG TAB SL PRN (00:30)
[2023-12-19] MEDS ORDERED: Acetaminophen 325 MG TAB PO PRN (00:30)
[2023-12-19] MEDS ORDERED: Ondansetron PF 4 MG/2 ML Vial IVP PRN (00:30)
[2023-12-19 00:52] LABS: Troponin I 0.032 ng/mL (< 0.028)
[2023-12-19] MEDS ORDERED: Nicotine 14 MG PATCH TD PRN (01:19)
[2023-12-19] MEDS ORDERED: Senokot S 8.6-50 MG TAB PO PRN (01:19)
[2023-12-19] MEDS ORDERED: Ipratropium/Albuterol 3 ML NEB NEB PRN ×2 (01:22→03:04)
[2023-12-19] MEDS ORDERED: Ondansetron ORAL SOLN. 4 MG/5 ML UDCUP PO PRN (01:22)
[2023-12-19] MEDS ORDERED: Albuterol 200 PUFF (6.7GM INHALER) INH PRN (01:55)
[2023-12-19] MEDS ORDERED: Lidocaine 2% Viscous Solution 10 ML, Aluminum & Magnesium Hydroxide 30 ML SSW SCH (02:00)
[2023-12-19] MEDS ORDERED: Ipratropium/Albuterol 3 ML NEB NEB SCH (02:30)
[2023-12-19 02:34] VITALS: BMI 18.8
[2023-12-19] MEDS ORDERED: Ondansetron ODT 4 MG TAB ONE (02:38)
[2023-12-19] MEDS ORDERED: rOPINIRole HCl 1 MG TAB PO SCH (03:00)
[2023-12-19] MEDS ORDERED: Albuterol 2.5 MG (3 mL) NEB NEB PRN (03:04)
[2023-12-19 03:37] LABS: #Monocytes 0.3 thou/uL (0.11-0.59); #Neutrophils 4.6 thou/uL (1.40-6.50); %Basophils 0.5 % (0.0-1.0); %Lymphocytes 20.2 % (21.0-51.0); %Monocytes 5.3 % (0.0-10.0); %Neutrophils 73.8 % (42.0-75.0); Hematocrit 20.9 % (36.0-47.0); Hemoglobin 6.3 g/dL (12.0-16.0); Mean Corpuscular HGB CONC 30.1 g/dL (32.0-36.0); Mean Corpuscular Hemoglobin 19.6 pg (27.0-31.0); Mean Corpuscular Volume 64.9 fl (78.0-98.0); Platelet Count 231 10x3/uL (130-400); Red Blood Cell (RBC) Count 3.22 mill/uL (4.20-5.40); White Blood Cell (WBC) Count 6.3 10x3/uL (4.8-10.8)
[2023-12-19 04:18] LABS: ALT (SGPT) 13 U/L (8-55); AST (SGOT) 32 U/L (5-34); Albumin 3.8 g/dL (3.4-4.8); Alkaline Phosphatase 44 U/L (40-110); Anion Gap 13 mmol/L (10-20); BUN (Urea Nitrogen) 13 mg/dL (9.8-20.1); Bilirubin, Total 0.3 mg/dL (0.2-1.2); Calc. Creatinine Clearance 72 mL/min (70-130); Carbon Dioxide 29 mmol/L (23-31); Chloride 101 mmol/L (98-107); Estimated GFR 97; Globulin 2.5 g/dL (2.4-3.5); Glucose 103 mg/dL (80-115); Magnesium 1.7 mg/dL (1.6-2.6); Phosphorus 3.6 mg/dL (2.3-4.7); Potassium 3.6 mmol/L (3.5-5.1); Protein, Total 6.3 g/dL (5.8-8.1); Sodium 139 mmol/L (136-145)
[2023-12-19 04:21] LABS: Troponin I 0.038 ng/mL (< 0.028)
[2023-12-19 06:44] LABS: #Monocytes 0.4 thou/uL (0.11-0.59); #Neutrophils 3.5 thou/uL (1.40-6.50); %Basophils 0.7 % (0.0-1.0); %Lymphocytes 32.4 % (21.0-51.0); %Monocytes 7.4 % (0.0-10.0); %Neutrophils 59.3 % (42.0-75.0); Hematocrit 20.9 % (36.0-47.0); Hemoglobin 6.2 g/dL (12.0-16.0); Mean Corpuscular HGB CONC 29.7 g/dL (32.0-36.0); Mean Corpuscular Hemoglobin 19.4 pg (27.0-31.0); Mean Corpuscular Volume 65.5 fl (78.0-98.0); Mean Platelet Volume 9.7 fL (7.4-10.4); Platelet Count 232 10x3/uL (130-400); Red Blood Cell (RBC) Count 3.19 mill/uL (4.20-5.40); White Blood Cell (WBC) Count 5.8 10x3/uL (4.8-10.8)
[2023-12-19] MEDS ORDERED: Atorvastatin Calcium 40 MG TAB ONE (08:16)
[2023-12-19] MEDS ORDERED: Furosemide 40 MG TAB ONE (08:17)
[2023-12-19] MEDS ORDERED: Pantoprazole 40 MG VIAL ONE (08:17)
[2023-12-19] MEDS: Pantoprazole 40 MG VIAL IVP SCH (08:43)
[2023-12-19] MEDS ORDERED: Pantoprazole 40 MG VIAL IVP SCH (09:00)
[2023-12-19] MEDS ORDERED: Apixaban 5 MG TAB PO SCH (09:00)
[2023-12-19] MEDS ORDERED: Aspirin 81 mg Enteric Coated Tablet PO SCH (09:00)
[2023-12-19] MEDS ORDERED: Ipratropium Bromide 2.5 ml Neb ONE ×2 (10:53→13:47)
[2023-12-19] MEDS: Ipratropium Bromide 2.5 ml Neb NEB SCH ×4 (11:01→22:15)
[2023-12-19] MEDS: Ferrous Sulfate 325 MG TAB PO SCH (11:06)
[2023-12-19] MEDS: Ezetimibe 10 MG TAB PO SCH (11:06)
[2023-12-19] MEDS: Furosemide 40 MG TAB PO SCH (11:06)
[2023-12-19] MEDS: Atorvastatin Calcium 40 MG TAB PO SCH (11:06)
[2023-12-19] MEDS: TREPROSTINIL DIOLAMINE PO SCH ×3 (11:06→22:28)
[2023-12-19] MEDS: Tadalafil [Tadalafil] 20 MG Tablet PO SCH (11:07)
[2023-12-19] MEDS: AMBRISENTAN 5 MG PO SCH (11:07)
[2023-12-19] MEDS ORDERED: HYDROcodone/Acetaminophen 10/325 mg Tablet ONE (11:11)
[2023-12-19] MEDS: HYDROcodone/Acetaminophen 10/325 mg Tablet PO PRN (11:11)
[2023-12-19] MEDS: Potassium Chloride 10 MEQ TAB PO SCH (11:56)
[2023-12-19 16:34] LABS: Hematocrit 24.7 % (36.0-47.0); Hemoglobin 7.5 g/dL (12.0-16.0)
[2023-12-19] MEDS: rOPINIRole HCl 1 MG TAB PO SCH (22:27)
[2023-12-20] MEDS: Ipratropium Bromide 2.5 ml Neb NEB SCH ×4 (07:30→21:55)
[2023-12-20 07:44] LABS: #Basophils 0.1 thou/uL (0.0-0.2); #Eosinphils 0.2 thou/uL (0.0-0.7); #Monocytes 0.6 thou/uL (0.11-0.59); #Neutrophils 4.4 thou/uL (1.40-6.50); %Basophils 0.8 % (0.0-1.0); %Eosinophils 2.7 % (0.0-10.0); %Lymphocytes 28.9 % (21.0-51.0); %Monocytes 7.6 % (0.0-10.0); %Neutrophils 59.7 % (42.0-75.0); Hematocrit 26.2 % (36.0-47.0); Mean Corpuscular HGB CONC 30.5 g/dL (32.0-36.0); Mean Corpuscular Hemoglobin 20.5 pg (27.0-31.0); Mean Platelet Volume 9.9 fL (7.4-10.4); Platelet Count 281 10x3/uL (130-400); RBC Distribution Width 19.9 % (11.5-14.5); Red Blood Cell (RBC) Count 3.91 mill/uL (4.20-5.40); White Blood Cell (WBC) Count 7.4 10x3/uL (4.8-10.8)
[2023-12-20 08:00] LABS: ALT (SGPT) 15 U/L (8-55); AST (SGOT) 30 U/L (5-34); Albumin 3.8 g/dL (3.4-4.8); Alkaline Phosphatase 45 U/L (40-110); Anion Gap 12 mmol/L (10-20); BUN (Urea Nitrogen) 10 mg/dL (9.8-20.1); Bilirubin, Total 0.5 mg/dL (0.2-1.2); Calc. Creatinine Clearance 69 mL/min (70-130); Calcium 8.9 mg/dL (7.8-10.44); Carbon Dioxide 31 mmol/L (23-31); Chloride 98 mmol/L (98-107); Estimated GFR 98; Globulin 2.6 g/dL (2.4-3.5); Glucose 81 mg/dL (80-115); Potassium 3.3 mmol/L (3.5-5.1); Protein, Total 6.4 g/dL (5.8-8.1); Sodium 138 mmol/L (136-145)
[2023-12-20 08:30] LABS: CellaVision Operator ID LAB.GE; Giant Platelets 1.2 % (0-5); Hypochromia MODERATE=16-30 cells HPF (0-5); Large Platelets 5.8 % (0-5); Microcytosis MODERATE=15-30 cells HPF (0-5); Platelet Adequacy Comment Platelets Normal; Polychromasia SLIGHT = 2-3 cells HPF (0-2)
[2023-12-20] MEDS ORDERED: Potassium Chloride 20 MEQ TAB PO SCH (08:45)
[2023-12-20] MEDS ORDERED: Magnesium 2 GM/50 ML(in water) 2 GM in Premix 1 BAG IVPB SCH (10:00)
[2023-12-20] MEDS ORDERED: Magnesium 2 GM/50 ML(in water) 1 GM in Premix 1 BAG IVPB SCH (10:00)
[2023-12-20] MEDS ORDERED: Apixaban 5 MG TAB PO SCH ×3 (10:00→21:00)
[2023-12-20] MEDS: Ezetimibe 10 MG TAB PO SCH (11:56)
[2023-12-20] MEDS: TREPROSTINIL DIOLAMINE PO SCH ×3 (11:56→18:09)
[2023-12-20] MEDS: Furosemide 40 MG TAB PO SCH (11:56)
[2023-12-20] MEDS: Atorvastatin Calcium 40 MG TAB PO SCH (11:56)
[2023-12-20] MEDS: AMBRISENTAN 5 MG PO SCH (11:57)
[2023-12-20] MEDS: Tadalafil [Tadalafil] 20 MG Tablet PO SCH (11:57)
[2023-12-20] MEDS: Pantoprazole 40 MG VIAL IVP SCH (11:57)
[2023-12-20] MEDS: Potassium Chloride 10 MEQ TAB PO SCH (11:57)
[2023-12-20] MEDS: HYDROcodone/Acetaminophen 10/325 mg Tablet PO PRN (18:43)
[2023-12-20] MEDS: rOPINIRole HCl 1 MG TAB PO SCH (20:10)
[2023-12-20] MEDS: Apixaban 5 MG TAB PO SCH (20:10)
[2023-12-21 06:51] LABS: #Basophils 0.1 thou/uL (0.0-0.2); #Monocytes 0.4 thou/uL (0.11-0.59); #Neutrophils 4.5 thou/uL (1.40-6.50); %Basophils 0.7 % (0.0-1.0); %Eosinophils 0.4 % (0.0-10.0); %Lymphocytes 25.6 % (21.0-51.0); %Monocytes 6.5 % (0.0-10.0); %Neutrophils 66.8 % (42.0-75.0); Hematocrit 26.3 % (36.0-47.0); Hemoglobin 7.9 g/dL (12.0-16.0); Mean Corpuscular Hemoglobin 20.2 pg (27.0-31.0); Mean Corpuscular Volume 67.3 fl (78.0-98.0); Mean Platelet Volume 10.3 fL (7.4-10.4); Platelet Count 253 10x3/uL (130-400); RBC Distribution Width 20.3 % (11.5-14.5); Red Blood Cell (RBC) Count 3.91 mill/uL (4.20-5.40); White Blood Cell (WBC) Count 6.8 10x3/uL (4.8-10.8)
[2023-12-21 07:17] LABS: ALT (SGPT) 17 U/L (8-55); AST (SGOT) 28 U/L (5-34); Albumin 3.7 g/dL (3.4-4.8); Alkaline Phosphatase 42 U/L (40-110); Anion Gap 11 mmol/L (10-20); BUN (Urea Nitrogen) 11 mg/dL (9.8-20.1); Bilirubin, Total 0.3 mg/dL (0.2-1.2); Calc. Creatinine Clearance 65 mL/min (70-130); Calcium 8.9 mg/dL (7.8-10.44); Carbon Dioxide 32 mmol/L (23-31); Chloride 99 mmol/L (98-107); Estimated GFR 94; Globulin 2.6 g/dL (2.4-3.5); Glucose 109 mg/dL (80-115); Potassium 3.8 mmol/L (3.5-5.1); Protein, Total 6.3 g/dL (5.8-8.1); Sodium 138 mmol/L (136-145)
[2023-12-21] MEDS: Ipratropium Bromide 2.5 ml Neb NEB SCH (07:40)
[2023-12-21] MEDS: TREPROSTINIL DIOLAMINE PO SCH (09:24)
[2023-12-21] MEDS: Tadalafil [Tadalafil] 20 MG Tablet PO SCH (09:24)
[2023-12-21] MEDS: AMBRISENTAN 5 MG PO SCH (09:24)
[2023-12-21] MEDS: Ezetimibe 10 MG TAB PO SCH (09:26)
[2023-12-21] MEDS: Potassium Chloride 10 MEQ TAB PO SCH (09:26)
[2023-12-21] MEDS: HYDROcodone/Acetaminophen 10/325 mg Tablet PO PRN (09:26)
[2023-12-21] MEDS: Ferrous Sulfate 325 MG TAB PO SCH (09:26)
[2023-12-21] MEDS: Apixaban 5 MG TAB PO SCH (09:26)
[2023-12-21] MEDS: Atorvastatin Calcium 40 MG TAB PO SCH (09:26)
[2023-12-21] MEDS: Furosemide 40 MG TAB PO SCH (09:26)
[2023-12-21] MEDS: Pantoprazole 40 MG VIAL IVP SCH (09:27)
[2023-12-21 10:42] VITALS: BP 118/57; TEMP 98.7
== END 2023-12-21 11:38 | disposition home health service (06) | DRG 811 ==
LOC: ERS 20:19 → ERHOLD 12-19 00:08 → 2NO 12-19 17:16 → OBSVTOIN 12-20 12:12
PROVIDERS: ADMIT Family Medicine; ATTEND Family Medicine
PROC: 30233N1 Transfusion of Nonautologous Red Blood Cells into Peripheral Vein, Percutaneous Approach (ICD-10-PCS; principal; 2023-12-19)
DX: D50.9 Iron deficiency anemia, unspecified (principal); K29.71 Gastritis, unspecified, with bleeding; J96.10 Chronic respiratory failure, unspecified whether with hypoxia or hypercapnia; I24.89 Other forms of acute ischemic heart disease; I50.32 Chronic diastolic (congestive) heart failure; J44.9 Chronic obstructive pulmonary disease, unspecified; I27.20 Pulmonary hypertension, unspecified; I11.0 Hypertensive heart disease with heart failure; E78.5 Hyperlipidemia, unspecified; K21.9 Gastro-esophageal reflux disease without esophagitis; G25.81 Restless legs syndrome; F17.210 Nicotine dependence, cigarettes, uncomplicated; D53.9 Nutritional anemia, unspecified; E87.6 Hypokalemia; G47.30 Sleep apnea, unspecified; E83.42 Hypomagnesemia; D56.3 Thalassemia minor; Z98.51 Tubal ligation status; Z90.89 Acquired absence of other organs; Z98.890 Other specified postprocedural states; Z90.721 Acquired absence of ovaries, unilateral; Z90.710 Acquired absence of both cervix and uterus; Z80.0 Family history of malignant neoplasm of digestive organs; Z80.8 Family history of malignant neoplasm of other organs or systems; Z86.73 Personal history of transient ischemic attack (TIA), and cerebral infarction without residual deficits; Z86.711 Personal history of pulmonary embolism; Z11.52 Encounter for screening for COVID-19
CPT/HCPCS: 36415; 36430; 71045; 71275; 80053; 83690; 83735; 84100; 84484; 85025; 86850; 86900; 86901; 93005; 94640; 94760; 96365; 96367; 96375; 96376; C9113; G0378; J2405; J2765; J3475; J3480; J7620; P9016; Q0162; Q9967; S0028